=== PATIENT | male | born 1945 | race Caucasian/White ===

== ENCOUNTER 2016-05-26 10:35 | Outpatient (CLI) | payer MEDICARE | END 2016-05-26 10:36 | disposition home or self-care (01) | DX: E78.5 Hyperlipidemia, unspecified (principal); E29.1 Testicular hypofunction; R07.9 Chest pain, unspecified ==

== ENCOUNTER 2016-08-23 10:31 | Outpatient (CLI) | payer MEDICARE ==
[2016-08-23 13:41] LABS: CALCIUM 9.4 mg/dL (8.5-10.3); CREATININE 1.6 mg/dL (0.6-1.2); POTASSIUM 4.3 mmol/L (3.5-5.0)
== END 2016-08-23 10:32 | disposition home or self-care (01) ==
LOC: LAB.N 10:31
PROVIDERS: ATTEND Family Medicine
DX: N18.2 Chronic kidney disease, stage 2 (mild) (principal)
CPT/HCPCS: 36415; 80048

== ENCOUNTER 2016-11-28 07:31 | Outpatient (CLI) | payer MEDICARE ==
[2016-11-28 12:51] LABS: CALCIUM 9.1 mg/dL (8.5-10.3); CREATININE 1.5 mg/dL (0.6-1.2)
== END 2016-11-28 07:32 | disposition home or self-care (01) ==
LOC: LAB.WCP 07:31
PROVIDERS: ATTEND Family Medicine
DX: N18.2 Chronic kidney disease, stage 2 (mild) (principal); N40.1 Benign prostatic hyperplasia with lower urinary tract symptoms
CPT/HCPCS: 36415; 80048; 84153

== ENCOUNTER 2017-03-15 14:54 | Outpatient (CLI) | payer MEDICARE ==
[2017-03-15 13:38] LABS: BASOPHILS # (AUTO) 0.1 10^3/uL (0.0-0.1); BASOPHILS % (AUTO) 0.9 %; EOSINOPHILS # (AUTO) 0.3 10^3/uL (0.0-0.7); EOSINOPHILS % (AUTO) 4.3 %; HCT - HEMATOCRIT 45.4 % (42.0-52.0); HGB - HEMOGLOBIN 15.2 g/dL (14.0-18.0); LYMPHOCYTES # (AUTO) 1.5 10^3/uL (1.5-3.5); LYMPHOCYTES % (AUTO) 24.3 %; MEAN CORPUSCULAR HEMOGLOBIN 32.8 pg (27.0-31.0); MEAN CORPUSCULAR HGB CONC 33.6 g/dL (32.0-36.0); MEAN CORPUSCULAR VOLUME 97.8 fL (80.0-94.0); MEAN PLATELET VOLUME 9.4 fL (7.4-11.4); MONOCYTES # (AUTO) 0.6 10^3/uL (0.0-1.0); NEUTROPHILS # (AUTO) 3.7 10^3/uL (1.5-6.6); NEUTROPHILS % (AUTO) 61.5 %; NUCLEATED RED BLOOD CELLS AUTO 0.2 /100WBC; RED BLOOD COUNT 4.64 10^6/uL (4.70-6.10); RED CELL DISTRIBUTION WIDTH 12.9 % (12.0-15.0); UNCORRECTED WHITE BLOOD COUNT 6.1 x10^3/uL; WHITE BLOOD COUNT 6.1 x10^3/uL (4.8-10.8)
[2017-03-15 13:57] LABS: ALBUMIN/GLOBULIN RATIO 1.3 (1.0-2.2); BILIRUBIN,TOTAL 0.8 mg/dL (0.2-1.0); BUN - BLOOD UREA NITROGEN 20 mg/dL (6-20); CALCIUM 8.9 mg/dL (8.5-10.3); CARBON DIOXIDE - CO2 20 mmol/L (21-32); CHLORIDE 109 mmol/L (101-111); CHOL/HDL RATIO 6.1 (<5.0); CHOLESTEROL 212 mg/dL; CREATININE 1.4 mg/dL (0.6-1.2); GFR - MDRD 50 (>89); GLUCOSE 91 mg/dL (70-100); HDL CHOLESTEROL 35 mg/dL; LDL/HDL RATIO 4.6 (<3.6); SODIUM 137 mmol/L (135-145); TRIGLYCERIDES 87 mg/dL; VLDL CHOLESTEROL 17 mg/dL
== END 2017-03-15 14:55 | disposition home or self-care (01) ==
LOC: LAB.WCP 14:54
PROVIDERS: ATTEND Family Medicine
DX: N18.2 Chronic kidney disease, stage 2 (mild) (principal); E78.5 Hyperlipidemia, unspecified; E29.1 Testicular hypofunction
CPT/HCPCS: 36415; 80053; 80061; 84403; 85025

== ENCOUNTER 2017-07-03 08:00 | Outpatient (CLI) | payer MEDICARE ==
[2017-07-03 12:25] LABS: BASOPHILS # (AUTO) 0.1 10^3/uL (0.0-0.1); EOSINOPHILS # (AUTO) 0.2 10^3/uL (0.0-0.7); EOSINOPHILS % (AUTO) 3.8 %; LYMPHOCYTES # (AUTO) 1.5 10^3/uL (1.5-3.5); LYMPHOCYTES % (AUTO) 23.8 %; MEAN CORPUSCULAR HEMOGLOBIN 32.5 pg (27.0-31.0); MEAN CORPUSCULAR HGB CONC 33.4 g/dL (32.0-36.0); MEAN CORPUSCULAR VOLUME 97.4 fL (80.0-94.0); MONOCYTES # (AUTO) 0.6 10^3/uL (0.0-1.0); NEUTROPHILS # (AUTO) 3.8 10^3/uL (1.5-6.6); NEUTROPHILS % (AUTO) 61.4 %; PLT - PLATELET COUNT 297 10^3/uL (130-450); RED CELL DISTRIBUTION WIDTH 13.4 % (12.0-15.0); WHITE BLOOD COUNT 6.2 x10^3/uL (4.8-10.8)
[2017-07-03 12:26] LABS: ALBUMIN/GLOBULIN RATIO 1.4 (1.0-2.2); ALKALINE PHOSPHATASE 56 IU/L (42-121); ALT ALANINE AMINOTRANSFERASE 26 IU/L (10-60); AST ASPARTATE AMINOTRANSFERASE 19 IU/L (10-42); BILIRUBIN,TOTAL 0.7 mg/dL (0.2-1.0); BUN - BLOOD UREA NITROGEN 13 mg/dL (6-20); CALCIUM 8.8 mg/dL (8.5-10.3); CARBON DIOXIDE - CO2 23 mmol/L (21-32); CHLORIDE 107 mmol/L (101-111); CHOL/HDL RATIO 3.6 (<5.0); CHOLESTEROL 132 mg/dL; CREATININE 1.3 mg/dL (0.6-1.2); GFR - MDRD 55 (>89); GLUCOSE 92 mg/dL (70-100); HDL CHOLESTEROL 37 mg/dL; LDL CHOLESTEROL,CALCULATED 74 mg/dL; SODIUM 137 mmol/L (135-145); TOTAL PROTEIN 6.8 g/dL (6.7-8.2); VLDL CHOLESTEROL 21 mg/dL
[2017-07-03 12:31] LABS: PSA TOTAL 0.52 ng/mL (0.000-2.000)
[2017-07-03 13:37] LABS: RBC MORPHOLOGY (MULTIPLE) 2+ ANISOCYTOSIS (NORMAL)
== END 2017-07-03 08:01 | disposition home or self-care (01) ==
LOC: LAB.WCP 08:00
PROVIDERS: ATTEND Family Medicine
DX: N18.2 Chronic kidney disease, stage 2 (mild) (principal); E78.5 Hyperlipidemia, unspecified; E29.1 Testicular hypofunction
CPT/HCPCS: 36415; 80053; 80061; 83721; 84153; 84403; 85025

== ENCOUNTER 2018-01-29 07:07 | Outpatient (CLI) | payer MEDICARE ==
[2018-01-29 14:08] LABS: BASOPHILS # (AUTO) 0.1 10^3/uL (0.0-0.1); BASOPHILS % (AUTO) 0.8 %; EOSINOPHILS # (AUTO) 0.5 10^3/uL (0.0-0.7); EOSINOPHILS % (AUTO) 5.6 %; HGB - HEMOGLOBIN 15.3 g/dL (14.0-18.0); LYMPHOCYTES # (AUTO) 1.9 10^3/uL (1.5-3.5); LYMPHOCYTES % (AUTO) 22.3 %; MEAN CORPUSCULAR HEMOGLOBIN 33.2 pg (27.0-31.0); MEAN CORPUSCULAR HGB CONC 33.6 g/dL (32.0-36.0); MEAN CORPUSCULAR VOLUME 98.9 fL (80.0-94.0); MEAN PLATELET VOLUME 8.4 fL (7.4-11.4); MONOCYTES % (AUTO) 11.5 %; NEUTROPHILS % (AUTO) 59.8 %; PLT - PLATELET COUNT 305 10^3/uL (130-450); RED BLOOD COUNT 4.59 10^6/uL (4.70-6.10); RED CELL DISTRIBUTION WIDTH 13.8 % (12.0-15.0); WHITE BLOOD COUNT 8.3 x10^3/uL (4.8-10.8)
[2018-01-29 14:29] LABS: ALBUMIN 3.8 g/dL (3.2-5.5); ALBUMIN/GLOBULIN RATIO 1.3 (1.0-2.2); BILIRUBIN,TOTAL 0.8 mg/dL (0.2-1.0); CALCIUM 8.9 mg/dL (8.5-10.3); CREATININE 1.2 mg/dL (0.6-1.2); TOTAL PROTEIN 6.8 g/dL (6.7-8.2)
== END 2018-01-29 07:08 | disposition home or self-care (01) ==
LOC: LAB.WCP 07:07
PROVIDERS: ATTEND Family Medicine
DX: N28.9 Disorder of kidney and ureter, unspecified (principal); E29.1 Testicular hypofunction
CPT/HCPCS: 36415; 80053; 84403; 85025

== ENCOUNTER 2018-06-27 08:00 | Outpatient (CLI) | payer MEDICARE ==
[2018-06-27 19:15] LABS: BASOPHILS % (AUTO) 0.7 %; EOSINOPHILS # (AUTO) 0.2 10^3/uL (0.0-0.7); EOSINOPHILS % (AUTO) 3.7 %; LYMPHOCYTES # (AUTO) 1.6 10^3/uL (1.5-3.5); LYMPHOCYTES % (AUTO) 24.8 %; MEAN CORPUSCULAR HEMOGLOBIN 32.4 pg (27.0-31.0); MEAN CORPUSCULAR HGB CONC 33.1 g/dL (32.0-36.0); MEAN CORPUSCULAR VOLUME 97.8 fL (80.0-94.0); MEAN PLATELET VOLUME 8.3 fL (7.4-11.4); MONOCYTES # (AUTO) 0.7 10^3/uL (0.0-1.0); MONOCYTES % (AUTO) 11.1 %; NEUTROPHILS # (AUTO) 3.8 10^3/uL (1.5-6.6); NEUTROPHILS % (AUTO) 59.7 %; PLT - PLATELET COUNT 342 10^3/uL (130-450); RED BLOOD COUNT 4.32 10^6/uL (4.70-6.10); WHITE BLOOD COUNT 6.4 x10^3/uL (4.8-10.8)
[2018-06-27 19:19] LABS: PT - PROTHROMBIN TIME 11.7 secs (9.9-12.6)
[2018-06-27 19:32] LABS: PARTIAL THROMBOPLASTIN TIME 30.1 secs (24.9-33.3)
[2018-06-27 19:37] LABS: PSA TOTAL 0.23 ng/mL (0.000-2.000)
[2018-06-27 19:41] LABS: ALBUMIN 4.1 g/dL (3.2-5.5); ALBUMIN/GLOBULIN RATIO 1.3 (1.0-2.2); ALKALINE PHOSPHATASE 64 IU/L (42-121); ALT ALANINE AMINOTRANSFERASE 23 IU/L (10-60); AST ASPARTATE AMINOTRANSFERASE 26 IU/L (10-42); BILIRUBIN,TOTAL 0.7 mg/dL (0.2-1.0); BUN - BLOOD UREA NITROGEN 20 mg/dL (6-20); CALCIUM 9.3 mg/dL (8.5-10.3); CARBON DIOXIDE - CO2 26 mmol/L (21-32); CHLORIDE 102 mmol/L (101-111); CHOL/HDL RATIO 3.3 (<5.0); CHOLESTEROL 168 mg/dL; CREATININE 1.3 mg/dL (0.6-1.2); GFR - MDRD 55 (>89); GLUCOSE 85 mg/dL (70-100); HDL CHOLESTEROL 51 mg/dL; LDL CHOLESTEROL,CALCULATED 94 mg/dL; LDL/HDL RATIO 1.8 (<3.6); SODIUM 138 mmol/L (135-145); TOTAL PROTEIN 7.2 g/dL (6.7-8.2); VLDL CHOLESTEROL 23 mg/dL
[2018-06-28 12:41] LABS: HEPATITIS C ANTIBODY NON-REACTIVE (NON-REACTIVE)
== END 2018-06-27 08:01 | disposition home or self-care (01) ==
LOC: LAB.WCP 08:00
PROVIDERS: ATTEND Family Medicine
DX: N18.2 Chronic kidney disease, stage 2 (mild) (principal); E29.1 Testicular hypofunction; Z79.899 Other long term (current) drug therapy; Z11.59 Encounter for screening for other viral diseases; M54.5 Low back pain; G89.29 Other chronic pain
CPT/HCPCS: 36415; 80053; 80061; 83721; 84153; 84403; 85025; 85610; 85730; 86803

== ENCOUNTER 2018-08-22 08:09 | Outpatient (CLI) | payer MEDICARE ==
--- NOTE | 2018-08-22 08:57 | XRAY Report ---
Reason: PAIN IN LEFT WRIST Procedure Date: 08/22/2018 Accession Number: [id number] / [id number] Procedure: WCP - Wrist 3 View LT CPT Code: FULL RESULT: EXAM: LEFT WRIST RADIOGRAPHY EXAM DATE: 08/22/2018 08:22 AM. CLINICAL HISTORY: Pain in left wrist, ulnar side. COMPARISON: None. TECHNIQUE: 3 views. 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 Changes of prior healed fracture of the third metacarpal. Prior arthrodesis of the fourth IP joint. No acute fracture appreciated. Joints: Minor degenerative osteophyte noted of the proximal pole of the lunate. Soft Tissues: Normal. No soft tissue swelling. IMPRESSION: 1. Operative changes. 2. No acute fracture. RADIA
== END 2018-08-22 08:10 | disposition home or self-care (01) ==
LOC: DI.WCP 08:09
PROVIDERS: ATTEND Family Medicine
DX: M25.532 Pain in left wrist (principal)

== ENCOUNTER 2019-02-04 10:14 | Outpatient (CLI) | payer MEDICARE ==
[2019-02-04 10:42] LABS: BASOPHILS % (AUTO) 0.6 %; EOSINOPHILS # (AUTO) 0.3 10^3/uL (0.0-0.7); EOSINOPHILS % (AUTO) 4.3 %; HGB - HEMOGLOBIN 14.4 g/dL (14.0-18.0); LYMPHOCYTES # (AUTO) 1.6 10^3/uL (1.5-3.5); LYMPHOCYTES % (AUTO) 21.7 %; MEAN CORPUSCULAR HEMOGLOBIN 30.6 pg (27.0-31.0); MEAN CORPUSCULAR VOLUME 95.7 fL (80.0-94.0); MEAN PLATELET VOLUME 9.5 fL (7.4-11.4); MONOCYTES # (AUTO) 0.6 10^3/uL (0.0-1.0); MONOCYTES % (AUTO) 8.7 %; NEUTROPHILS # (AUTO) 4.6 10^3/uL (1.5-6.6); NEUTROPHILS % (AUTO) 64.4 %; PLT - PLATELET COUNT 341 10^3/uL (130-450); RED CELL DISTRIBUTION WIDTH 13.8 % (12.0-15.0); WHITE BLOOD COUNT 7.1 x10^3/uL (4.8-10.8)
[2019-02-04 10:56] LABS: CALCIUM 9.1 mg/dL (8.5-10.3); CREATININE 1.3 mg/dL (0.6-1.2)
--- NOTE | 2019-02-04 16:10 | XRAY Report ---
Reason: OTHER DISORDERS OF PREPUCE Procedure Date: 02/04/2019 Accession Number: [id number] / [id number] Procedure: XR - Chest 2 View X-Ray CPT Code: 77737 FULL RESULT: EXAM: CHEST RADIOGRAPHY EXAM DATE: 02/04/2019 10:56 AM. CLINICAL HISTORY: OTHER DISORDERS OF PREPUCE. Preoperative evaluation COMPARISON: CHEST 2 VIEW PA/LAT 01/18/2018 11:11 AM. TECHNIQUE: 2 views. FINDINGS: Lungs/Pleura: No focal opacities evident. No pleural effusion. No pneumothorax. Normal volumes. Mediastinum: Heart and mediastinal contours are unremarkable. Other: Healed right midshaft clavicle fracture. Spinal neural stimulator in place. Postsurgical change lumbar spine IMPRESSION: Clear lungs. No acute findings. RADIA
== END 2019-02-04 10:15 | disposition home or self-care (01) ==
LOC: LAB 10:14 → DI 10:15
PROVIDERS: ATTEND Urology
DX: Z01.818 Encounter for other preprocedural examination (principal); N47.8 Other disorders of prepuce
CPT/HCPCS: 36415; 71046; 80048; 85025; 93005

== ENCOUNTER 2019-02-11 06:01 | Day surgery (SDC) | payer MEDICARE ==
[2019-02-11] MEDS ORDERED: LACTATED RINGERS 1,000 ML IV ONE (06:20)
[2019-02-11] MEDS ORDERED: CEFAZOLIN SODIUM IN 0.9 % NACL 2 GM/100 ML BAG IV ONE (06:38)
[2019-02-11] MEDS ORDERED: BUPIVACAINE 0.5% PF 30 ML VIAL ONE (07:04)
[2019-02-11] MEDS ORDERED: BACITRACIN ZINC OINT 14 GM TOP ONE (07:05)
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
--- NOTE | 2019-02-11 07:24 | ANESTHESIA ---
Pre-Anesthesia VS, & Labs - Diagnosis redundant foreskin - Procedure circumcision Vital Signs: Temp Pulse Resp BP Pulse Ox 37 C 107 H 18 140/92 H 94 02/11/19 06:40 02/11/19 06:40 02/11/19 06:40 02/11/19 06:40 02/11/19 06:40 Height 5 ft 11 in Weight (kg) 98 kg Body Mass Index 28.7 - Lab Results Current Lab Results: Laboratory Tests 02/11/19 07:03: POC Whole Bld Glucose 92 Home Medications and Allergies Home Medications: Ambulatory Orders Aspirin/Acetaminophen/Caffeine [Excedrin Migraine Caplet] 1 each PO ONCE PRN 02/04/19 Cyanocobalamin (Vitamin B-12) [Vitamin B-12 (100mcg tab)] 100 mcg PO QPM 02/04/19 DULoxetine [Cymbalta] 30 mg PO DAILY 02/04/19 Testosterone [Androgel] 5 gm TD DAILY 02/04/19 Tolterodine [Detrol LA] 4 mg PO DAILY 02/04/19 Trospium Chloride [Trospium Chloride ER] 60 mg PO DAILY 02/04/19 Cholecalciferol (Vitamin D3) [Vitamin D3] 2,000 unit PO BID 08/23/12 Verapamil [Calan] 80 mg PO BID 08/23/12 clonazePAM [Clonazepam] 0.5 mg PO QPM PRN 08/23/12 Atorvastatin Calcium [Lipitor] 20 mg PO DAILY 10/02/12 Magnesium Oxide [Mag-Oxide] 800 mg PO QPM 11/12/12 Tamsulosin [Flomax] 0.4 mg PO DAILY 12/17/12 Sumatriptan Succinate [Imitrex] 100 mg PO ONCE PRN 08/18/14 Aspirin/Acetaminophen/Caffeine [Excedrin Migraine Caplet] 1 each PO ONCE PRN 02/04/19 Cyanocobalamin (Vitamin B-12) [Vitamin B-12 (100mcg tab)] 100 mcg PO QPM 02/04/19 DULoxetine [Cymbalta] 30 mg PO DAILY 02/04/19 Testosterone [Androgel] 5 gm TD DAILY 02/04/19 Tolterodine [Detrol LA] 4 mg PO DAILY 02/04/19 Trospium Chloride [Trospium Chloride ER] 60 mg PO DAILY 02/04/19 Allergies/Adverse Reactions: Allergies Allergy/AdvReac Type Severity Reaction Status Date / Time ampicillin [Ampicillin] Allergy Intermediate Cramps Verified 09/26/14 15:08 adhesive Allergy Mild Rash Verified 09/22/14 10:22 Anes History & Medical History - Anesthetic History Family history of Anesthesia Complications: Denies Family history of Malignant Hyperthermia: Denies - Medical History Cardiovascular: reports: High cholesterol, Deep vein thrombosis Pulmonary: reports: Sleep apnea Gastrointestinal: reports: Colon polyps Urinary: reports: Frequency, Kidney stones Musculoskeletal: reports: Osteoarthritis, Osteoporosis, Chronic back pain, Other Endocrine/Autoimmune: reports: None Skin: reports: Eczema Smoking Status: Never smoker - Surgical History General: Splenectomy, Colonoscopy Eyes Ears Nose Throat (EENT): Tonsil/Adenoidectomy, Other Urologic: Ureterolithotomy (stones), Prostatic surgery Orthopedic: Shoulder arthroplasty, Spine surgery, Other Exam Dental: WNL Mouth Openin Fingerbreadth Neck Mobility: Normal Mallampati classification: II Thyromental Distance: 4-6 cm Respiratory: Lungs clear, Normal breath sounds, No respiratory distress, No accessory muscle use Cardiovascular: Regular rate, Normal S1, Normal S2, No murmurs Abdomen: Normal bowel sounds, Soft, No tenderness, No hepatospenomegaly, No masses Extremities: No clubbing, No cyanosis, No edema, Normal pulses, No tenderness/swelling Neurological: Normal gait, Normal speech, Strength at 5/5 X4 ext, Normal tone, Sensation intact, Cranial nerves 3-12 NL, Reflexes 2+ Mental/Cognitive Status: Alert/Oriented X3, Normal for patient Cognitive Status: Within normal limits Plan Anesthesia Type: General Consent for Procedure(s) Verified and Reviewed: Yes Code Status: Attempt Resuscitation ASA classification: 2-Mild systemic disease Is this case an emergency?: No
[2019-02-11] MEDS ORDERED: NEOSTIGMINE 1 MG/1 ML 10 ML MDV IVP ONE (08:00)
[2019-02-11] MEDS ORDERED: raNITIdine INJ 25 MG/ML VIAL IV ONE (08:00)
[2019-02-11] MEDS ORDERED: DEXAMETHASONE 4 MG/ML VIAL IVP ONE (08:00)
[2019-02-11] MEDS ORDERED: ONDANSETRON 4 MG/2 ML VIAL IVP ONE (08:00)
[2019-02-11] MEDS ORDERED: LIDOCAINE-MPF 2% 5 ML VIAL IM ONE (08:00)
[2019-02-11] MEDS ORDERED: ACETAMINOPHEN 1,000 MG/100 ML 100 ML IV ONE (08:00)
[2019-02-11] MEDS ORDERED: ePHEDrine 50 MG/ML VIAL IVP ONE (08:00)
[2019-02-11] MEDS ORDERED: fentaNYL 100 MCG/2 ML VIAL IVP ONE (08:00)
[2019-02-11] MEDS ORDERED: GLYCOPYRROLATE 1 MG/5 ML VIAL IVP ONE (08:00)
[2019-02-11] MEDS ORDERED: PROPOFOL 200 MG/20 ML VIAL IVP ONE (08:00)
[2019-02-11] MEDS ORDERED: BUPIVACAINE 0.5% PF 30 ML VIAL INFIL ONE ×2 (08:46)
[2019-02-11] MEDS ORDERED: HYDROcod/ACETAM 10 MG/325 MG TABLET PO PRN (09:57)
[2019-02-11] MEDS ORDERED: ONDANSETRON 4 MG/2 ML VIAL IVP PRN (09:57)
--- NOTE | 2019-02-11 10:02 | IMMEDIATE POSTOPERATIVE NOTE ---
Immediate Postoperative Note - Procedure Note Procedure Date: 02/11/19 Pre-Op Diagnosis: Redundant foreskin Procedure: Circumcision Post-Op Diagnosis: Redundant foreskin Primary Surgeon: Homero Foy MD Level Designer: None Anesthesia Type: Other (General) Findings: Redundant foreskin seen. Circumcision performed. Complications: No complications Estimated Blood Loss (in cc): 5 Specimens and Cultures: Foreskin Plan of Care: Plan is for patient to be discharged home when stable and to RTC with me for post-op visit in 2-3 weeks.
[2019-02-11 11:02] VITALS: BP 140/79
--- NOTE | 2019-02-11 18:52 | OPERATIVE REPORT ---
DATE OF SERVICE: 02/11/2019 Physician: Homero Foy MD PREOPERATIVE DIAGNOSIS: Redundant foreskin. POSTOPERATIVE DIAGNOSIS: Redundant foreskin. PROCEDURE PERFORMED: Circumcision. SURGEON: Homero Foy MD ASSISTANTS: None. ANESTHESIA: General. ESTIMATED BLOOD LOSS: 5 mL SPECIMENS: Foreskin. DRAINS: None. COMPLICATIONS: None. DISPOSITION: Stable. FINDINGS: Redundant foreskin was seen. Circumcision was performed. INDICATIONS: The patient is a 73-year-old male with redundant foreskin. The patient now presents fo r circumcision. DESCRIPTION OF PROCEDURE: The patient was brought to the operating room and was placed supine on the operating room table. The patient was given IV antibiotics. Sequential compression device boots we re placed. General anesthesia was administered. The patient was left in supine position. The patie nt was prepped and draped in standard sterile fashion. Redundant foreskin was seen. Circumcision w as performed, specifically the foreskin was retracted and a line was marked approximately 1 cm proxim al to the matamoros. Incision was made at the level of this line through the skin, subcutaneous tissue and dartos fascia down to Cardona's fascia sharply using a #15 blade. Then, the foreskin was reduced. A line was marked at the outline of the matamoros. Incision was made at the level of this line through the skin, subcutaneous tissue and dartos fascia down to Cardona's fascia sharply using a #15 blade. The n, the foreskin was incised on the dorsal aspect of the penis sharply using Metzenbaum scissors. The foreskin was excised using Bovie electrocautery and was sent to pathology for permanent specimen. E xcellent hemostasis was achieved using Bovie electrocautery. The wound was thoroughly irrigated usin g sterile solution. Then, skin edges were reapproximated on the dorsal aspect of the penis using a 3 -0 chromic suture. The skin edges were reapproximated on the ventral aspect of the penis using a U s uture of 3-0 chromic. The skin edges were reapproximated on the right side using a running 3-0 chrom ic suture. Skin edges were then reapproximated on the left side using a running 3-0 chromic suture. Then, anesthesia in the form of penile ring block was administered using 0.5% plain Marcaine to aid in postoperative pain control. Skin was cleaned and dried. Antibiotic ointment and sterile dressing s were applied. The patient was awakened from general anesthesia and was transferred to the recovery room in stable condition. The patient tolerated the procedure well. Postoperative plan is for the patient to be discharged home when stable and return to see me in the [facility] for a postoperative visit in 2-3 weeks. TD: 02/11/2019 16:23
== END 2019-02-11 06:02 | disposition home or self-care (01) ==
LOC: SDS 06:01
PROVIDERS: ATTEND Urology
PROC: 0VTTXZZ Resection of Prepuce, External Approach (ICD-10-PCS; principal; 2019-02-11 07:30)
DX: N47.8 Other disorders of prepuce (principal); N48.1 Balanitis; N40.1 Benign prostatic hyperplasia with lower urinary tract symptoms; R35.0 Frequency of micturition; R35.1 Nocturia; N20.0 Calculus of kidney; G47.30 Sleep apnea, unspecified; Z79.899 Other long term (current) drug therapy; Z86.718 Personal history of other venous thrombosis and embolism
CPT/HCPCS: 54161; A9270; J0131; J0690; J7120

== ENCOUNTER 2019-03-12 14:25 | Outpatient (CLI) | payer MEDICARE ==
--- NOTE | 2019-03-13 11:36 | DEXA Report ---
Reason: BONE DISORDERS Procedure Date: 03/12/2019 Accession Number: [id number] / [id number] Procedure: DEX - Dexa Spine and/or Hip CPT Code: Final Report FULL RESULT: EXAM: Dexa Spine and/or Hip, Dexa Forearm DATE: 03/12/2019 3:28 PM CLINICAL HISTORY: The patient is a 73-year-old male. Hypogonadism. On hormonal placement therapy. TECHNIQUE: Dual energy x-ray absorptiometry (DXA) was performed on a [employer] System. Regions measured are the AP Spine, femoral neck, and if needed forearm. COMPARISON: None. In accordance with the International Society for Clinical Densitometry (ISCD) guidelines, data from previous exams may be reanalyzed using current recommendations and techniques. This is done to allow a more accurate basis for comparison with the current study. FINDINGS: The data for the hip is as follows: BMD (g/cm/cm) T-SCORE Z-SCORE REGION Neck 0.873 -1.5 -0.7 TOTAL 0.887 -1.5 -1.2 NOTE: The femoral neck or total proximal femur, whichever is lowest, is used for classification. The data for the left forearm is as follows: BMD (g/cm/cm) T-SCORE Z-SCORE REGION 1/3 1.028 0.4 1.2 NOTE: The 33% radius of the nondominant forearm is used for classification. IMPRESSION: THE WHO CLASSIFICATION BASED ON THE INTERNATIONAL REFERENCE STANDARD IS OSTEOPENIA. THE FRACTURE RISK IS INCREASED. RECOMMENDATION: Patients with diagnosis of osteoporosis or osteopenia should have regular bone mineral density assessment. For those eligible for Medicare, routine testing is allowed once every 2 years. Testing frequency can be increased for patients who have rapidly progressing disease or for those who are receiving medical therapy to restore bone mass. COMMENT: World Health Organization (WHO) definitions for osteoporosis and osteopenia: NORMAL BMD: T-score at -1.0 or higher, fracture risk is low OSTEOPENIA BMD: T-score between -1.0 and -2.5, fracture risk is increased. OSTEOPOROSIS BMD: T-score at -2.5 or lower, fracture risk is high. National Osteoporosis Foundation recommends: 1. Obtain adequate dietary calcium (at least 1200 mg per day) and vitamin D (400-800 international units per day). 2. Participate, as appropriate, in regular weightbearing and muscle-strengthening exercise. 3. Avoid tobacco use and reduce alcohol and caffeine intake. 4. For more detailed information see the website at www.NOF.org.
--- NOTE | 2019-03-13 11:36 | DEXA Report ---
Reason: Bone Disorder Procedure Date: 03/12/2019 Accession Number: [id number] / [id number] Procedure: DEX - Dexa Forearm CPT Code: Final Report FULL RESULT: EXAM: Dexa Spine and/or Hip, Dexa Forearm DATE: 03/12/2019 3:28 PM CLINICAL HISTORY: The patient is a 73-year-old male. Hypogonadism. On hormonal placement therapy. TECHNIQUE: Dual energy x-ray absorptiometry (DXA) was performed on a [employer] System. Regions measured are the AP Spine, femoral neck, and if needed forearm. COMPARISON: None. In accordance with the International Society for Clinical Densitometry (ISCD) guidelines, data from previous exams may be reanalyzed using current recommendations and techniques. This is done to allow a more accurate basis for comparison with the current study. FINDINGS: The data for the hip is as follows: BMD (g/cm/cm) T-SCORE Z-SCORE REGION Neck 0.873 -1.5 -0.7 TOTAL 0.887 -1.5 -1.2 NOTE: The femoral neck or total proximal femur, whichever is lowest, is used for classification. The data for the left forearm is as follows: BMD (g/cm/cm) T-SCORE Z-SCORE REGION 1/3 1.028 0.4 1.2 NOTE: The 33% radius of the nondominant forearm is used for classification. IMPRESSION: THE WHO CLASSIFICATION BASED ON THE INTERNATIONAL REFERENCE STANDARD IS OSTEOPENIA. THE FRACTURE RISK IS INCREASED. RECOMMENDATION: Patients with diagnosis of osteoporosis or osteopenia should have regular bone mineral density assessment. For those eligible for Medicare, routine testing is allowed once every 2 years. Testing frequency can be increased for patients who have rapidly progressing disease or for those who are receiving medical therapy to restore bone mass. COMMENT: World Health Organization (WHO) definitions for osteoporosis and osteopenia: NORMAL BMD: T-score at -1.0 or higher, fracture risk is low OSTEOPENIA BMD: T-score between -1.0 and -2.5, fracture risk is increased. OSTEOPOROSIS BMD: T-score at -2.5 or lower, fracture risk is high. National Osteoporosis Foundation recommends: 1. Obtain adequate dietary calcium (at least 1200 mg per day) and vitamin D (400-800 international units per day). 2. Participate, as appropriate, in regular weightbearing and muscle-strengthening exercise. 3. Avoid tobacco use and reduce alcohol and caffeine intake. 4. For more detailed information see the website at www.NOF.org.
== END 2019-03-12 14:26 | disposition home or self-care (01) ==
LOC: DI 14:25
PROVIDERS: ATTEND Family Medicine
DX: M85.88 Other specified disorders of bone density and structure, other site (principal)
CPT/HCPCS: 77080; 77081

== ENCOUNTER 2019-11-29 20:25 | Outpatient (CLI) | payer MEDICARE | END 2019-11-29 20:26 | disposition critical access hospital (66) | LOC: EMS 20:25 | PROVIDERS: ATTEND Surgery | DX: R53.1 Weakness (principal) | CPT/HCPCS: A0425; A0427 ==

== ENCOUNTER 2019-11-29 20:40 | Inpatient (IN) | payer MEDICARE ==
[2019-11-29] MEDS ORDERED: SODIUM CHLORIDE 0.9% 1,000 ML IV STA ×2 (20:57→20:58)
[2019-11-29 21:18] LABS: BASOPHILS # (AUTO) 0.1 10^3/uL (0.0-0.1); BASOPHILS % (AUTO) 0.5 %; LYMPHOCYTES # (AUTO) 0.5 10^3/uL (1.5-3.5); LYMPHOCYTES % (AUTO) 2.2 %; MEAN CORPUSCULAR HGB CONC 33.2 g/dL (32.0-36.0); MEAN CORPUSCULAR VOLUME 96.3 fL (80.0-94.0); MEAN PLATELET VOLUME 9.6 fL (7.4-11.4); MONOCYTES # (AUTO) 1.5 10^3/uL (0.0-1.0); MONOCYTES % (AUTO) 6.4 %; NEUTROPHILS # (AUTO) 21.4 10^3/uL (1.5-6.6); NEUTROPHILS % (AUTO) 90.3 %; PLT - PLATELET COUNT 507 10^3/uL (130-450); RED BLOOD COUNT 4.06 10^6/uL (4.70-6.10); RED CELL DISTRIBUTION WIDTH 13.2 % (12.0-15.0); WHITE BLOOD COUNT 23.7 x10^3/uL (4.8-10.8)
[2019-11-29 21:23] LABS: INR 1.2 (0.8-1.2); PT - PROTHROMBIN TIME 13.8 secs (9.9-12.6)
[2019-11-29 21:31] LABS: PARTIAL THROMBOPLASTIN TIME 27.1 secs (24.9-33.3)
[2019-11-29 21:32] LABS: ALBUMIN 3.7 g/dL (3.2-5.5); ALBUMIN/GLOBULIN RATIO 1.1 (1.0-2.2); BILIRUBIN,TOTAL 0.5 mg/dL (0.2-1.0); CREATININE 1.5 mg/dL (0.6-1.2); TOTAL PROTEIN 7.1 g/dL (6.7-8.2)
--- NOTE | 2019-11-29 21:34 | XRAY Report ---
PROCEDURE: Chest 1 View X-Ray INDICATIONS: fever, post op back surgery TECHNIQUE: One view of the chest was acquired. COMPARISON: Chest CT dated 02.04.19. FINDINGS: Surgical changes and devices: None. Lungs and pleura: No pleural effusions or pneumothorax. Lungs are clear. Mediastinum: Mediastinal contours appear normal. Heart size is normal. Bones and chest wall: No suspicious bony lesions. Overlying soft tissues appear unremarkable. IMPRESSION: No acute process. Reviewed by: Demetris Galloway MD on 11/29/2019 9:32 PM PDT Approved by: Demetris Galloway MD on 11/29/2019 9:32 PM PDT Station ID: [id number]
[2019-11-29 21:47] LABS: RBC MORPHOLOGY (MULTIPLE) 1+ ACANTHOCYTES (NORMAL)
[2019-11-29 21:48] LABS: DIFFERENTIAL COMMENT MANUAL=AUTO DIFF; PLATELET ESTIMATE, MANUAL INCREASED (>450,000) (NORMAL); PLATELET MORPHOLOGY NORMAL APPEARANCE (NORMAL)
[2019-11-29 21:53] LABS: BILIRUBIN,URINE NEGATIVE (NEGATIVE); GLUCOSE, URINE (UA) NEGATIVE (NEGATIVE); KETONES,URINE (UA) NEGATIVE (NEGATIVE); LEUKOCYTE ESTERASE, URINE TRACE (NEGATIVE); NITRITE,URINE POSITIVE (NEGATIVE); OCCULT BLOOD,URINE SMALL (NEGATIVE); PROTEIN,URINE NEGATIVE (NEGATIVE); UROBILINOGEN,URINE 0.2 (NORMAL) E.U./dL (NORMAL)
[2019-11-29 21:55] LABS: CLARITY,URINE HAZY (CLEAR)
[2019-11-29 22:04] LABS: AMORPHOUS SEDIMENT,UR Few /LPF; BACTERIA,URINE Many /HPF (None Seen); SQUAMOUS EPITHELIAL CELL,UR RARE Squamous (<= Few)
[2019-11-29] MEDS ORDERED: VANCOMYCIN INJ 1 GM in SODIUM CHLORIDE 0.9% 500 ML IV STA (22:36)
[2019-11-29] MEDS ORDERED: MEROPENEM 1 GM in SODIUM CHLORIDE 0.9% MINIBAG 100 ML IV STA (22:36)
[2019-11-29] MEDS ORDERED: VANCOMYCIN 1 GM VIAL ONE (22:50)
--- NOTE | 2019-11-29 23:08 | ED Physician Documentation ---
PD HPI ALTERED MENTAL STATUS - Stated complaint Stated Complaint: FEVER - Chief complaint Chief Complaint: Fever - History obtained from History obtained from: Patient, EMS, Other (Patient with generalized weakness and little bit of somnolence or mild confusion for the last couple of days. He had difficulty getting up today. No focal weakness.) - History of Present Illness Timing - onset: Yesterday Timing - duration: Days (2) Timing - details: Gradual onset, Still present Quality / character: Confused, Other (general weakness) Associated symptoms: Fever (since yesterday), Urinary sx. No: Headache, Dyspnea, Cough, NVD Contributing factors: No: Anticoagulated, Diabetic, Recent injury Basline status: Alert and oriented X 3, Walker Similar symptoms before: Has not had sx before Recently seen: Clinic (Seen a few days ago for catheter removal and was placed on antibiotics by his urologist Sarika Chavez for concern of infection. He has been on it for 2 days but now is having some discomfort urinating, fever, general weakness.), Surgery (Lumbar laminectomy at [facility] on November 13 with surgery at the L1-L2 level. He states the wound is healing well without any signs of infection.) Review of Systems Constitutional: reports: Fever (at home) Nose: denies: Rhinorrhea / runny nose, Congestion Throat: denies: Sore throat Respiratory: denies: Cough GI: denies: Abdominal Pain, Nausea, Vomiting, Diarrhea : reports: Dysuria, Frequency Skin: denies: Rash, Lesions Musculoskeletal: reports: Back pain (just mild post op, improving well since surgery.) Neurologic: reports: Generalized weakness, Confused (feeling slightly sluggish). denies: Focal weakness, Numbness, Near syncope, Unresponsive, Headache PD PAST MEDICAL HISTORY - Past Medical History Cardiovascular: High cholesterol, Deep vein thrombosis Respiratory: Sleep apnea Neuro: None Endocrine/Autoimmune: None GI: Colon polyps : Frequency, Kidney stones HEENT: None Psych: Depression, Anxiety Musculoskeletal: Osteoarthritis, Osteoporosis, Chronic back pain, Other Derm: Eczema - Past Surgical History Past Surgical History: Yes General: Splenectomy, Colonoscopy Ortho: Shoulder arthroplasty, Spine surgery, Other HEENT: Tonsil/Adenoidectomy, Other - Present Medications Home Medications: Ambulatory Orders Medication Instructions Recorded Confirmed Cholecalciferol (Vitamin D3) 2,000 unit PO BID 08/23/12 02/04/19 [Vitamin D3] Verapamil [Calan] 80 mg PO BID 08/23/12 02/11/19 clonazePAM [Clonazepam] 0.5 mg PO QPM PRN 08/23/12 02/04/19 Atorvastatin Calcium [Lipitor] 20 mg PO DAILY 10/02/12 02/04/19 Magnesium Oxide [Mag-Oxide] 800 mg PO QPM 11/12/12 02/11/19 Tamsulosin [Flomax] 0.4 mg PO DAILY 12/17/12 02/11/19 Sumatriptan Succinate [Imitrex] 100 mg PO ONCE PRN 08/18/14 02/11/19 Aspirin/Acetaminophen/Caffeine 1 each PO ONCE PRN 02/04/19 02/04/19 [Excedrin Migraine Caplet] Cyanocobalamin (Vitamin B-12) 100 mcg PO QPM 02/04/19 02/11/19 [Vitamin B-12 (100mcg tab)] DULoxetine [Cymbalta] 30 mg PO DAILY 02/04/19 02/04/19 Testosterone [Androgel] 5 gm TD DAILY 02/04/19 02/11/19 Tolterodine [Detrol LA] 4 mg PO DAILY 02/04/19 02/11/19 Trospium Chloride [Trospium 60 mg PO DAILY 02/04/19 02/11/19 Chloride ER] - Allergies Allergies/Adverse Reactions: Allergies Allergy/AdvReac Type Severity Reaction Status Date / Time ampicillin [Ampicillin] Allergy Intermediate Cramps Verified 11/29/19 20:49 adhesive Allergy Mild Rash Verified 11/29/19 20:49 - Social History Does the pt smoke?: No Smoking Status: Never smoker Does the pt drink ETOH?: No Does the pt have substance abuse?: No - Immunizations Immunizations are current?: Yes - POLST Patient has POLST: No PD ED PE NORMAL - Vitals Vital signs reviewed: Yes - General General: Alert and oriented X 3, No acute distress, Well developed/nourished - HEENT HEENT: Ears normal, Moist mucous membranes, Pharynx benign - Neck Neck: Supple, no meningeal sign, No adenopathy - Cardiac Cardiac: No murmur. No: RRR (regular but tachycardic) - Respiratory Respiratory: Clear bilaterally - Abdomen Abdomen: Normal bowel sounds, Soft, Non distended, No organomegaly, Other (mild tender suprapubic area) - Male Male : Other (normal external genitalia) - Back Back: No CVA TTP, Other (limited rolling of patient, but no noted redness of the surgical wound low back. ) - Derm Derm: Normal color, Warm and dry - Extremities Extremities: Normal ROM s pain, No edema, No calf tenderness / cord - Neuro Neuro: Alert and oriented X 3, No sensory deficit, Normal speech, Other (Moderate generalized weakness with difficulty raising arms and legs up off the bed. It does appear generally symmetric without localizing to the lower legs nor unilateral.) Eye Opening: Spontaneous Motor: Obeys Commands Verbal: Oriented GCS Score: 15 Results - Vitals Vitals: Vital Signs - 24 hr 11/29/19 11/29/19 11/29/19 20:49 22:09 22:30 Temperature 38.0 C H 36.6 C Heart Rate 135 H 106 H 110 H Respiratory 18 24 16 Rate Blood Pressure 113/67 109/51 L 120/80 O2 Saturation 92 97 98 11/29/19 23:00 Temperature 36.6 C Heart Rate 108 H Respiratory 16 Rate Blood Pressure 118/62 O2 Saturation 97 Oxygen O2 Source Nasal cannula Oxygen Flow Rate 2 - Labs Labs: Laboratory Tests 11/29/19 11/29/19 11/29/19 21:10 21:11 21:11 WBC 23.7 H RBC 4.06 L Hgb 13.0 L Hct 39.1 L MCV 96.3 H MCH 32.0 H MCHC 33.2 RDW 13.2 Plt Count 507 H MPV 9.6 Neut # (Auto) 21.4 H Lymph # (Auto) 0.5 L [place] # (Auto) 1.5 H Eos # (Auto) 0.0 Baso # (Auto) 0.1 Absolute Nucleated RBC 0.00 Band Neuts % (Manual) Not Reportable Abnorm Lymph % (Manual) Not Reportable Nucleated RBC % 0.0 Neutrophils # (Manual) Not Reportable Lymphocytes # (Manual) Not Reportable Monocytes # (Manual) Not Reportable Eosinophils # (Manual) Not Reportable Basophils # (Manual) Not Reportable Differential Comment MANUAL=AUTO DIFF Manual Slide Review Indicated Platelet Estimate INCREASED (>450,000) Platelet Morphology NORMAL APPEARANCE RBC Morph Micro Appear 1+ ACANTHOCYTES PT 13.8 H INR 1.2 APTT 27.1 Sodium 135 Potassium 3.7 Chloride 100 L Carbon Dioxide 27 Anion Gap 8.0 BUN 20 Creatinine 1.5 H Estimated GFR (MDRD) 46 L Glucose 141 H Lactic Acid Calcium 9.0 Total Bilirubin 0.5 AST 24 ALT 27 Alkaline Phosphatase 69 Troponin I High Sens B-Natriuretic Peptide Total Protein 7.1 Albumin 3.7 Globulin 3.4 Albumin/Globulin Ratio 1.1 Lipase 28 Urine Color Urine Clarity Urine pH Ur Specific [place] Urine Protein Urine Glucose (UA) Urine Ketones Urine Occult Blood Urine Nitrite Urine Bilirubin Urine Urobilinogen Ur Leukocyte Esterase Urine RBC Urine WBC Ur Squamous Epith Cells Amorphous Sediment Urine Bacteria Ur Microscopic Review Urine Culture Comments 11/29/19 11/29/19 11/29/19 21:11 21:11 21:11 WBC RBC Hgb Hct MCV MCH MCHC RDW Plt Count MPV Neut # (Auto) Lymph # (Auto) [place] # (Auto) Eos # (Auto) Baso # (Auto) Absolute Nucleated RBC Band Neuts % (Manual) Abnorm Lymph % (Manual) Nucleated RBC % Neutrophils # (Manual) Lymphocytes # (Manual) Monocytes # (Manual) Eosinophils # (Manual) Basophils # (Manual) Differential Comment Manual Slide Review Platelet Estimate Platelet Morphology RBC Morph Micro Appear PT INR APTT Sodium Potassium Chloride Carbon Dioxide Anion Gap BUN Creatinine Estimated GFR (MDRD) Glucose Lactic Acid 1.2 Calcium Total Bilirubin AST ALT Alkaline Phosphatase Troponin I High Sens 18.9 B-Natriuretic Peptide 89 Total Protein Albumin Globulin Albumin/Globulin Ratio Lipase Urine Color Urine Clarity Urine pH Ur Specific [place] Urine Protein Urine Glucose (UA) Urine Ketones Urine Occult Blood Urine Nitrite Urine Bilirubin Urine Urobilinogen Ur Leukocyte Esterase Urine RBC Urine WBC Ur Squamous Epith Cells Amorphous Sediment Urine Bacteria Ur Microscopic Review Urine Culture Comments 11/29/19 21:46 WBC RBC Hgb Hct MCV MCH MCHC RDW Plt Count MPV Neut # (Auto) Lymph # (Auto) [place] # (Auto) Eos # (Auto) Baso # (Auto) Absolute Nucleated RBC Band Neuts % (Manual) Abnorm Lymph % (Manual) Nucleated RBC % Neutrophils # (Manual) Lymphocytes # (Manual) Monocytes # (Manual) Eosinophils # (Manual) Basophils # (Manual) Differential Comment Manual Slide Review Platelet Estimate Platelet Morphology RBC Morph Micro Appear PT INR APTT Sodium Potassium Chloride Carbon Dioxide Anion Gap BUN Creatinine Estimated GFR (MDRD) Glucose Lactic Acid Calcium Total Bilirubin AST ALT Alkaline Phosphatase Troponin I High Sens B-Natriuretic Peptide Total Protein Albumin Globulin Albumin/Globulin Ratio Lipase Urine Color YELLOW Urine Clarity HAZY Urine pH 8.0 H Ur Specific [place] 1.020 Urine Protein NEGATIVE Urine Glucose (UA) NEGATIVE Urine Ketones NEGATIVE Urine Occult Blood SMALL H Urine Nitrite POSITIVE H Urine Bilirubin NEGATIVE Urine Urobilinogen 0.2 (NORMAL) Ur Leukocyte Esterase TRACE H Urine RBC 6-10 H Urine WBC 11-25 H Ur Squamous Epith Cells RARE Squamous Amorphous Sediment Few Urine Bacteria Many H Ur Microscopic Review INDICATED Urine Culture Comments INDICATED - Rads (name of study) chest xray Radiology: Prelim report reviewed (no acute infiltrates nor abnormal), See rad report PD MEDICAL DECISION MAKING - ED course Complexity details: reviewed results (Urinalysis shows signs of infection. His white count is elevated. Lactate is normal. Chest x-ray is clear. Presume UTI post procedure.), re-evaluated patient, considered differential (As of fever so we will look for common infections. He has had some dysuria. We will get labs and urine and chest x-ray. No signs of wound infection clinically.), d/w patient ED course: Spoke with Dr. Reese our hospitalist who asked for a CT KUB to ensure no stones or obstruction concurrent with the urinary tract infection. CT is pending. The patient was given IV fluids and Tylenol and Toradol and also started on antibiotics. He is tachycardic and generally weak but normal lactate. Concern for early sepsis. Departure - Departure Disposition: 66 [facility] DC/Xfer Clinical Impression: Generalized weakness Fever Qualifiers: Fever type: unspecified Qualified Code(s): R50.9 - Fever, unspecified UTI (urinary tract infection) Qualifiers: Urinary tract infection type: site unspecified Hematuria presence: without hematuria Qualified Code(s): N39.0 - Urinary tract infection, site not specified Condition: Stable Record reviewed to determine appropriate education?: Yes
[2019-11-29] MEDS ORDERED: KETOROLAC 15 MG/ML VIAL IVP STA (23:10)
[2019-11-29] MEDS ORDERED: SODIUM CHLORIDE FLUSH 0.9% 10 ML SYRINGE IVP PRN (23:51)
[2019-11-29] MEDS ORDERED: ACETAMINOPHEN 325 MG TABLET PO PRN (23:56)
[2019-11-29] MEDS ORDERED: ONDANSETRON ODT 4 MG TABLET TL PRN (23:56)
[2019-11-29] MEDS ORDERED: MORPHINE 2 MG/ML CARPUJECT IVP PRN (23:56)
[2019-11-29] MEDS ORDERED: ONDANSETRON 4 MG/2 ML VIAL IVP PRN (23:56)
--- NOTE | 2019-11-30 02:11 | HISTORY & PHYSICAL EXAMINATION ---
Chief Complaint - Chief Complaint Chief Complaint: Weakness History of Present Illness - Admitted From Admitted From:: Home - History Obtained From Records Reviewed: Yes History obtained from: Patient, ER Physician, EMR - History of Present Illness HPI Comment/Other: This is a 74-year-old male with a past medical history significant for recurrent kidney stones, migraines, hyperlipidemia, BPH who presents today complaining of weakness that began yesterday. He underwent a lumbar fusion of L1-L2 on November 13 at [place]. He states he was hospitalized for about 6 days and since then he has been doing well at home. He states he has a history of chronic back pain and has multiple surgeries including fusions and laminectomies. He states since he has been home, he is working with home health and he has been ambulating with a walker. He had a Miller catheter in place that was removed yesterday by his urologist, Dr. Salazar. He states he was started on antibiotics yesterday for urinary tract infection. He started to feel a little weak in his lower extremities yesterday and today it progressed and so he sought medical attention. He reports no back pain, fevers, chills. He reports no bowel incontinence and states he feels constipated and his last bowel movement was about 2 to 3 days ago. He reports no dysuria, urgency, frequency, hematuria. He denies any chest pain, dyspnea, cough. He also denies sore throat, nasal congestion. He reports no numbness in his lower extremities and denies saddle anesthesia. He states his back pain has been well controlled on oxycodone at home. In the emergency department, he was found to be febrile with temperature of 38 C. He was tachycardic with a heart rate of 135. His blood pressure was 113/67. He was not tachypneic. He was saturating 97% on 2 L of oxygen via nasal cannula. Labs were significant for a white count of 23.7 with a left shift. His creatinine was stable at 1.5. His lactic acid was normal at 1.2. His troponin was also normal at 18.9. Urinalysis revealed positive nitrites, trace leukocyte esterase, 11-25 WBCs and many bacteria. He was given vancomycin and meropenem IV in the emergency department. He was also given 2 L of normal saline. He underwent a CT of the abdomen and pelvis which did not reveal any renal obstruction. Medicine was consulted for admission given the above findings. I did discuss goals of care with the patient and he would like to be a full code. History - Past Medical History Cardiovascular: reports: High cholesterol Respiratory: reports: Sleep apnea Neuro: reports: None Endocrine/Autoimmune: reports: None GI: reports: Colon polyps : reports: Frequency, Kidney stones HEENT: reports: None Psych: reports: Depression, Anxiety Musculoskeletal: reports: Osteoarthritis, Osteoporosis, Chronic back pain, Other Derm: reports: Eczema MRSA Hx?: No - Past Surgical History General: reports: Splenectomy, Colonoscopy Ortho: reports: Shoulder arthroplasty, Spine surgery, Other HEENT: reports: Tonsil/Adenoidectomy, Other - Family & Social History Family History Comment/Other: His father had bladder cancer. He in his 90s. His mother lived to her 90s as well. Living arrangement: At home Living Situation: With spouse/s.o. Social History Notes: He is a non-smoker. He does not drink alcohol. He lives at home with his . He has been retired for 17 years and has lived on [facility] since his long-term. 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 - POLST Patient has POLST: No Meds/Allgy - Home Medications Home Medications: Ambulatory Orders Medication Instructions Recorded Confirmed Cholecalciferol (Vitamin D3) 2,000 unit PO BID 08/23/12 02/04/19 [Vitamin D3] Verapamil [Calan] 80 mg PO BID 08/23/12 02/11/19 clonazePAM [Clonazepam] 0.5 mg PO QPM PRN 08/23/12 02/04/19 Atorvastatin Calcium [Lipitor] 20 mg PO DAILY 10/02/12 02/04/19 Magnesium Oxide [Mag-Oxide] 800 mg PO QPM 11/12/12 02/11/19 Tamsulosin [Flomax] 0.4 mg PO DAILY 12/17/12 02/11/19 Sumatriptan Succinate [Imitrex] 100 mg PO ONCE PRN 08/18/14 02/11/19 Aspirin/Acetaminophen/Caffeine 1 each PO ONCE PRN 02/04/19 02/04/19 [Excedrin Migraine Caplet] Cyanocobalamin (Vitamin B-12) 100 mcg PO QPM 02/04/19 02/11/19 [Vitamin B-12 (100mcg tab)] DULoxetine [Cymbalta] 30 mg PO DAILY 02/04/19 02/04/19 Testosterone [Androgel] 5 gm TD DAILY 02/04/19 02/11/19 Tolterodine [Detrol LA] 4 mg PO DAILY 02/04/19 02/11/19 Trospium Chloride [Trospium 60 mg PO DAILY 02/04/19 02/11/19 Chloride ER] - Allergies Allergies/Adverse Reactions: Allergies Allergy/AdvReac Type Severity Reaction Status Date / Time ampicillin [Ampicillin] Allergy Intermediate Cramps Verified 11/29/19 20:49 adhesive Allergy Mild Rash Verified 11/29/19 20:49 Review of Systems - Constitutional Constitutional: reports: Weakness. denies: Fatigue, Fever, Chills, Poor appetite - Eyes Eyes: denies: Blurred vision - Ears, Nose & Throat Ears, Nose & Throat: denies: Nasal discharge, Nasal congestion, Sore throat - Cardiovascular Cariovascular: denies: Chest pain, Edema, Lightheadedness, Exertional dyspnea, Decr. exercise tolerance - Respiratory Respiratory: denies: Cough, SOB at rest, SOB with exertion - Gastrointestinal Gastrointestinal: reports: Constipation. denies: Abdominal pain, Diarrhea, Bloody stools, Nausea, Vomiting - Genitourinary Genitourinary: denies: Dysuria, Frequency, Urgency, Hematuria - Musculoskeletal Musculoskeletal: reports: Back pain, Muscle weakness. denies: Limited range of motion - Integumentary Integumentary: denies: Rash - Neurological Neurological: reports: General weakness. denies: Focal weakness, Dizziness, Numbness - Hematologic/Lymphatic Hematologic/Lymphatic: denies: Anemia, Bleeding tendencies - All Other Systems All Other Systems: reports: Reviewed and negative Prior Level of Functionality: He is independent with his ADLs. He currently ambulates with a walker after his lumbar spine fusion surgery. He has home health. Exam - Vital Signs Reviewed Vital Signs: Yes Vital Signs: Vital Signs x48h Temp Pulse Resp BP Pulse Ox 11/30/19 01:30 95 22 106/46 L 94 11/30/19 01:00 36.6 C 100 20 106/62 98 11/30/19 00:30 36.7 C 102 H 22 105/63 97 11/30/19 00:00 36.6 C 104 H 22 98/54 L 98 11/29/19 23:30 106 H 24 98/52 L 97 11/29/19 23:00 36.6 C 108 H 16 118/62 97 11/29/19 22:30 36.6 C 110 H 16 120/80 98 11/29/19 22:09 106 H 24 109/51 L 97 11/29/19 20:49 38.0 C H 135 H 18 113/67 92 - Physical Exam General Appearance: positive: No acute distress, Alert Eyes Bilateral: positive: Normal inspection, Conjunctivae nml ENT: positive: ENT inspection nml, Other (Nasal cannula in place) Neck: positive: Nml inspection Respiratory: positive: No respiratory distress. negative: Wheezes, Rales Cardiovascular: positive: No murmur, Tachycardia. negative: Irregularly irr egular, Bradycardia, Systolic murmur Abdomen: positive: Non-tender, No distention, Abnml bowel sounds (Hypoactive.). negative: Tenderness, Guarding, Rebound Back: positive: Other (Bedford in place over the lumbar spine. The site appears clean without any erythema or purulent discharge. He has no lumbar spine tenderness.) Skin: positive: Warm, Dry Extremities: positive: Full ROM, Pedal edema (Trace to +1 pitting edema in right lower extremity.). negative: Calf tenderness, Zeeshan's sign/cords Neurologic/Psychiatric: positive: Oriented x3, Motor nml, Sensation nml, Other (He has about 5 out of 5 motor strength in all 4 extremities. Sensation is grossly intact. No obvious focal deficits.). negative: Disoriented to person, Disoriented to place, Disoriented to time, Sensory loss, Slurred/abnml speech Sepsis Event Note (H) - Evaluation Current Stage of Sepsis: Sepsis - Sepsis Criteria Sepsis Criteria: Suspected or Documented, Recorded Temperature greater than 38.3C or Less than 36C, Recorded Heart Rate greater than 90 bpm, WBC count greater than 12,000 or less than 4000 Conclusion/Plan - Problem List (1) Sepsis Conclusion/Plan: This is likely secondary to urinary tract infection given the urinalysis findings. His heart rate has improved after receiving IV fluids but he remains tachycardic. Fortunately, he is normotensive and his lactic acid is within normal limits. There is no evidence of end-organ damage. Do not suspect an infection of the lumbar spine as the site of the incision appears clean, dry, and intact. He also has no lumbar spine tenderness. We will start him on vancomycin and meropenem IV empirically and will de-escalate based off of urine cultures. Continue with IV fluids. Trend his white count and fever curve. We will check for COVID-19. Follow-up blood cultures. If he does not improve with antibiotics then we will need to evaluate for other possible source of infection and this would likely include imaging of the lumbar spine given his recent intervention. (2) UTI (urinary tract infection) Conclusion/Plan: This is the likely source of his sepsis. His urinalysis is suggestive of infec tion. He did have a Miller catheter in place that was just removed yesterday. He had been started on antibiotics but he is unsure of which one and only took [address] did reveal bilateral nephrolithiasis but no evidence of obstruction. Given the recent instrumentation, we will start him on vancomycin and meropenem IV empirically. Will de-escalate based off of urine cultures. Qualifiers: Urinary tract infection type: acute cystitis Hematuria presence: without hematuria Qualified Code(s): N30.00 - Acute cystitis without hematuria (3) Hypoxia Conclusion/Plan: He is requiring 2 L of oxygen via nasal cannula as he reportedly desaturated on room air. His chest x-ray is unremarkable. He does have lower extremity edema of the right leg. His troponin and BNP are within normal limits. We will obtain Dopplers of the lower extremities to evaluate for DVT as he may potentially have a pulmonary embolism given his recent surgical intervention. We we will continue supplemental oxygen for goal oxygen saturation greater than 92%. (4) Status post lumbar spinal fusion Conclusion/Plan: Low suspicion of infection at this time given his physical exam findings. We will continue oxycodone as needed for pain control. (5) CKD (chronic kidney disease), stage III Conclusion/Plan: His renal function is currently at baseline with a creatinine of 1.5. We will continue to monitor while he is on IV antibiotics. Daily BMPs. (7) Hyperlipidemia Conclusion/Plan: We will continue his home statin. (8) Migraines Conclusion/Plan: We will continue Imitrex as needed. (9) BPH (benign prostatic hyperplasia) Conclusion/Plan: We will continue his home Flomax. - Lab Results Lab results reviewed: Yes Fish Bones: 11/29/19 21:11 11/29/19 21:10 - Diagnostic Imaging Results Diagnostic Imaging Results: positive: Final report reviewed - EKG Results EKG Interpreted Independently: Yes Core Measures - Anticipated LOS I expect patient to be DC'd or transferred within 96 hours.: Yes - Issues Hospital Issues and Management Plan: 74-year-old male who had a lumbar spine fusion surgery on the sixth at [facility] presents with weakness found to have sepsis secondary to a urinary tract infection. Will admit for IV antibiotics. - DVT/VTE - Prophylaxis VTE/DVT Device ordered at admit?: No Not Ordered - Medical Reason: Contraindicated VTE/DVT Prophylaxis med ordered at admit?: Yes
[2019-11-30] MEDS ORDERED: LACTATED RINGERS 1,000 ML IV ONE (02:30)
[2019-11-30] MEDS: SODIUM CHLORIDE FLUSH 0.9% 10 ML SYRINGE IVP SCH ×3 (03:48→16:52)
[2019-11-30] MEDS ORDERED: MEROPENEM 1 GM in SODIUM CHLORIDE 0.9% MINIBAG 100 ML IV SCH (05:00)
[2019-11-30] MEDS: LACTATED RINGERS 1,000 ML IV SCH ×3 (05:55→20:38)
[2019-11-30 06:49] LABS: BASOPHILS # (AUTO) 0.1 10^3/uL (0.0-0.1); BASOPHILS % (AUTO) 0.3 %; EOSINOPHILS % (AUTO) 0.1 %; HGB - HEMOGLOBIN 11.3 g/dL (14.0-18.0); LYMPHOCYTES # (AUTO) 1.2 10^3/uL (1.5-3.5); LYMPHOCYTES % (AUTO) 4.9 %; MEAN CORPUSCULAR HEMOGLOBIN 32.2 pg (27.0-31.0); MEAN CORPUSCULAR VOLUME 97.4 fL (80.0-94.0); MEAN PLATELET VOLUME 9.7 fL (7.4-11.4); MONOCYTES # (AUTO) 1.9 10^3/uL (0.0-1.0); MONOCYTES % (AUTO) 8.1 %; NEUTROPHILS # (AUTO) 20.1 10^3/uL (1.5-6.6); NEUTROPHILS % (AUTO) 85.7 %; PLT - PLATELET COUNT 401 10^3/uL (130-450); RED BLOOD COUNT 3.51 10^6/uL (4.70-6.10); RED CELL DISTRIBUTION WIDTH 13.4 % (12.0-15.0); WHITE BLOOD COUNT 23.5 x10^3/uL (4.8-10.8)
[2019-11-30 07:02] LABS: CALCIUM 8.3 mg/dL (8.5-10.3); CREATININE 1.2 mg/dL (0.6-1.2); PHOSPHORUS 2.7 mg/dL (2.5-4.6)
[2019-11-30] MEDS: oxyCODONE 5 MG TABLET PO PRN ×3 (07:22→19:28)
[2019-11-30 07:53] LABS: DIFFERENTIAL COMMENT MANUAL=AUTO DIFF; PLATELET ESTIMATE, MANUAL NORMAL (130-450,000) (NORMAL); PLATELET MORPHOLOGY NORMAL APPEARANCE (NORMAL); RBC MORPHOLOGY (MULTIPLE) NORMAL APPEARANCE (NORMAL)
[2019-11-30] MEDS: ENOXAPARIN 40 MG/0.4 ML SYRINGE SUBQ SCH (08:32)
[2019-11-30] MEDS ORDERED: SUMAtriptan 25 MG TABLET PO PRN (10:28)
--- NOTE | 2019-11-30 10:44 | CT Report ---
PROCEDURE: Abdomen/Pelvis WO INDICATIONS: fever and UTI TECHNIQUE: Noncontrast 5 mm thick sections acquired from the diaphragms to the symphysis. 5 mm coronal and sagi ttal reformats were then performed. For radiation dose reduction, the following was used: automated exposure control, adjustment of mA and/or kV according to patient size. COMPARISON: None. FINDINGS: Image quality: Excellent. ABDOMEN: Lung bases: Mild atelectatic changes and slight groundglass opacity at both lung bases.. Heart size is normal. Solid organs: Liver is normal size. There is a hypodensity in the medial aspect of the right hepatic lobe measuring 1.2 cm, probably a cyst or benign hemangioma. The spleen is likely surgically absent. Gallbladder is unremarkable. Pancreas is normal in contours. No adrenal nodules. Kidneys demonstrate multiple small bilateral collecting system calcifications, the largest on the rig ht in the mid pole measuring 6 mm and the largest on the left in the upper pole measuring 7 mm. There is no hydronephrosis, hydroureter, or ureteral calcifications Peritoneum and bowel: Unenhanced bowel loops demonstrate normal wall thickness and caliber. No free fluid or air. Nodes and vessels: No retroperitoneal or mesenteric adenopathy by size criteria. Aorta and inferior vena cava are normal in caliber. The inferior vena cava is decompressed suggesting hypovolemia Miscellaneous: No ventral hernias. PELVIS: Genitourinary: Bladder wall thickness is normal. There is air anteriorly in the urinary bladder, po tentially iatrogenic. No bladder masses or calcifications. The prostate gland size is within normal l imits Miscellaneous: No inguinal hernias or adenopathy. Bones: No suspicious bony lesions. No vertebral body compression fractures. Surgical changes in th e lumbar spine and an epidural stimulator device are present. IMPRESSION: 1. No evidence of obstructive uropathy. 2. Multiple bilateral intrarenal calcifications. 3. Urinary bladder air is most likely iatrogenic. 4. Splenectomy. 5. Possible hypovolemia. Correlate clinically. 6. Concordant with preliminary report. Reviewed by: Mariaa Sullivan MD on 11/30/2019 10:43 AM PDT Approved by: Mariaa Sullivan MD on 11/30/2019 10:43 AM PDT Station ID: [id number]
[2019-11-30] MEDS: BISACODYL 10 MG SUPP PR PRN (10:54)
--- NOTE | 2019-11-30 11:02 | Ultrasound Report ---
PROCEDURE: Duplex Ext Veins Bilateral INDICATIONS: Lower extremity edema TECHNIQUE: Real-time imaging, as well as color and pulse Doppler interrogation, were performed of the deep veins of both legs from the inguinal ligament to the popliteal fossa. COMPARISON: None available. FINDINGS: The deep veins are normally compressible, and free of intraluminal thrombus. Color and pu lse Doppler demonstrate normal phasic intravascular flow. There is normal augmentation response to d istal compression maneuver. IMPRESSION: No findings of deep venous thrombosis are seen. Reviewed by: Kirt Casanova MD on 11/30/2019 10:01 AM SCOOTER Approved by: Kirt Casanova MD on 11/30/2019 10:01 AM SCOOTER Station ID: [id number]
[2019-11-30] MEDS: VANCOMYCIN INJ 1 GM, VANCOMYCIN INJ 500 MG in SODIUM CHLORIDE 0.9% 500 ML IV SCH (13:49)
[2019-11-30] MEDS ORDERED: SODIUM CHLORIDE 0.9% 0 ML IV ONE (13:51)
[2019-11-30] MEDS ORDERED: VANCOMYCIN INJ 1 GM, VANCOMYCIN INJ 500 MG in SODIUM CHLORIDE 0.9% 250 ML IV SCH (14:00)
--- NOTE | 2019-11-30 15:14 | PHARMACY PROGRESS NOTE ---
- Best Possible Medication History Admit Date and Time: 11/29/19 4477 Processed by: Pharmacy Medication History completed: Yes Patient Interview: Completed Secondary Source(s): Written medication list, Pharmacy records, Insurance records As the person ultimately responsible for medication therapy, providers are able to order a medication from an existing home medication list in [facility] via the "Reconcile Routine" prior to Confirmation of that medication by support merchandiser. Such practice is discouraged except when the physician, in their clinical judgment, deems that a medical need exists for a medication without regard to previous use.
[2019-11-30] MEDS: MEROPENEM 1 GM in SODIUM CHLORIDE 0.9% MINIBAG 100 ML IV SCH (16:51)
[2019-11-30] MEDS ORDERED: VANCOMYCIN INJ 1 GM in SODIUM CHLORIDE 0.9% 250 ML IV SCH (23:00)
[2019-12-01] MEDS ORDERED: SUMAtriptan 25 MG TABLET PO STA ×2 (00:18→20:40)
[2019-12-01] MEDS: MEROPENEM 1 GM in SODIUM CHLORIDE 0.9% MINIBAG 100 ML IV SCH ×2 (00:30→07:40)
[2019-12-01] MEDS: SODIUM CHLORIDE FLUSH 0.9% 10 ML SYRINGE IVP SCH ×4 (00:31→23:53)
[2019-12-01] MEDS: LACTATED RINGERS 1,000 ML IV SCH (00:35)
[2019-12-01 05:33] LABS: BASOPHILS # (AUTO) 0.1 10^3/uL (0.0-0.1); BASOPHILS % (AUTO) 0.5 %; EOSINOPHILS # (AUTO) 0.2 10^3/uL (0.0-0.7); EOSINOPHILS % (AUTO) 1.5 %; HGB - HEMOGLOBIN 11.3 g/dL (14.0-18.0); LYMPHOCYTES # (AUTO) 1.7 10^3/uL (1.5-3.5); MEAN CORPUSCULAR HEMOGLOBIN 32.3 pg (27.0-31.0); MEAN CORPUSCULAR HGB CONC 32.8 g/dL (32.0-36.0); MEAN CORPUSCULAR VOLUME 98.3 fL (80.0-94.0); MEAN PLATELET VOLUME 9.7 fL (7.4-11.4); MONOCYTES # (AUTO) 1.3 10^3/uL (0.0-1.0); MONOCYTES % (AUTO) 8.2 %; NEUTROPHILS % (AUTO) 78.3 %; PLT - PLATELET COUNT 389 10^3/uL (130-450); RED CELL DISTRIBUTION WIDTH 13.6 % (12.0-15.0); WHITE BLOOD COUNT 15.3 x10^3/uL (4.8-10.8)
[2019-12-01 05:45] LABS: CALCIUM 8.1 mg/dL (8.5-10.3); CREATININE 1.1 mg/dL (0.6-1.2); MAGNESIUM 1.8 mg/dL (1.7-2.8); PHOSPHORUS 1.9 mg/dL (2.5-4.6)
--- NOTE | 2019-12-01 08:22 | PHARMACY PROGRESS NOTE ---
- Therapy Status Vancomycin regimen day #: 2 Therapy status: Awaiting steady state Basis for treatment: Empirical Treatment indication: UROSEPSIS Trough goal: 15-20 Concurrent antibiotics: MEROPENEM - SHARON Risk Risk level for Acute Kidney Injury: Moderate Acute Kidney Injury risk factors: Goal trough >15, Sepsis - Monitoring and Recommendation Clinical response to treatment: I&O Previous 24 hours 11/29/19 11/30/19 12/01/19 23:59 23:59 23:59 Intake Total 2783.333 4025 1181.667 Output Total 700 640 Balance 2783.333 3325 541.667 Lab Results 12/01/19 11/30/19 11/29/19 05:25 06:15 21:10 BUN 14 18 20 Creatinine 1.1 1.2 1.5 H Estimated GFR (MDRD) 66 L 60 L 46 L Cultures 11/29/19 21:04 Blood - Right Iv-Start Blood Culture - Preliminary NO GROWTH AFTER 1 DAY 11/29/19 21:11 Blood - Right Hand Blood Culture - Preliminary NO GROWTH AFTER 1 DAY 11/29/19 21:46 Urine,Catheterized Urine Culture - Final No growth Monitoring plan: Daily serum creatinine Next trough due prior to maintenance dose #: 3 Next trough due (date/time): 12/01 @0130 Areas for additional monitoring: IV to PO when appropriate, Therapy de- escalation based on culture results Pharmacy recommendation: Continue current regime
[2019-12-01] MEDS: VANCOMYCIN INJ 1 GM, VANCOMYCIN INJ 500 MG in SODIUM CHLORIDE 0.9% 500 ML IV SCH (08:23)
[2019-12-01] MEDS: ENOXAPARIN 40 MG/0.4 ML SYRINGE SUBQ SCH (08:24)
[2019-12-01] MEDS: oxyCODONE 5 MG TABLET PO PRN ×3 (08:24→23:53)
[2019-12-01] MEDS: BISACODYL 10 MG SUPP PR PRN (08:24)
--- NOTE | 2019-12-01 11:41 | PROVIDER PROGRESS NOTE ---
Subjective - Prog Note Date Prog Note Date: 12/01/19 Prog Note Time: 17:17 - Subjective Pt reports feeling: Improved Subjective: He feels like he is almost back to normal. His head is clearer. Denies chest pain, palpitations, shortness of breath. Back pain is controlled. Current Medications - Current Medications Current Medications: Active Medications Acetaminophen (Tylenol) 650 mg PO Q4HR PRN PRN Reason: Pain 1 to 4 Bisacodyl (Dulcolax Supp) 10 mg CA DAILY PRN PRN Reason: Constipation Last Admin: 12/01/19 08:24 Dose: 10 mg Documented by: Ciprofloxacin (Cipro) 500 mg PO BID [facility] Last Admin: 12/01/19 12:15 Dose: 500 mg Documented by: Enoxaparin Sodium (Lovenox) 40 mg SUBQ DAILY [facility] Last Admin: 12/01/19 08:24 Dose: 40 mg Documented by: Morphine Sulfate (Morphine (Carpuject)) 2 mg IVP Q2HR PRN PRN Reason: Pain 8 to 10 Ondansetron HCl (Zofran Inj) 4 mg IVP Q6HR PRN PRN Reason: Nausea / Vomiting Ondansetron HCl (Zofran Odt) 4 mg TL Q6HR PRN PRN Reason: Nausea / Vomiting Oxycodone HCl (Roxicodone) 10 mg PO Q6HR PRN PRN Reason: PAIN >8 Last Admin: 12/01/19 16:23 Dose: 10 mg Documented by: Sodium Chloride (Normal Saline Flush 0.9%) 10 ml IVP PRN PRN PRN Reason: NEEDED PER PROVIDER ORDERS Sodium Chloride (Normal Saline Flush 0.9%) 10 ml IVP 0100,0900,1700 [facility] Last Admin: 12/01/19 08:24 Dose: Not Given Documented by: Sumatriptan Succinate (Imitrex) 25 mg PO ONCE PRN PRN Reason: HEADACHE Stop: 12/05/19 10:27 Last Admin: 11/30/19 10:54 Dose: 25 mg Documented by: Verapamil [Calan] 80 mg PO BID 08/23/12 clonazePAM [Clonazepam] 0.25 mg PO QPM PRN 08/23/12 Atorvastatin Calcium [Lipitor] 20 mg PO DAILY 10/02/12 Magnesium Oxide [Mag-Oxide] 800 mg PO QPM 11/12/12 Tamsulosin [Flomax] 0.4 mg PO BID 12/17/12 Sumatriptan Succinate [Imitrex] 25 - 100 mg PO ONCE PRN 08/18/14 Testosterone [Androgel] 5 gm TD DAILY 02/04/19 Acetaminophen [Tylenol Extra Strength] 1,000 mg PO Q8H 11/30/19 Bethanechol Chloride 10 mg PO TID 11/30/19 Bisacodyl Supp [Dulcolax Supp] 10 mg CA DAILY PRN 11/30/19 Calcium Carbonate 500 mg PO QPM 11/30/19 Cholecalciferol (Vitamin D3) [Vitamin D3] 25 mcg PO BID 11/30/19 Docusate Sodium [Stool Softener] 250 mg PO BID 11/30/19 Senna [Senokot] 25.8 mg PO BID 11/30/19 Tizanidine HCl 2 mg PO TID 11/30/19 Trospium Chloride [Trospium Chloride ER] 60 mg PO DAILY 11/30/19 oxyCODONE [Roxicodone] 5 - 10 mg PO Q4H PRN 11/30/19 polyethylene glycoL 3350 [Miralax] 17 gm PO DAILY 11/30/19 Objective - Vital Signs/Intake & Output Reviewed Vital Signs: Yes Vital Signs: Vital Signs x48h Temp Pulse Pulse Resp BP Pulse Ox 12/01/19 08:48 36.8 C 98 18 125/69 96 12/01/19 06:20 36.9 C 98 18 95 Intake & Output: Intake & Output 11/28/19 11/29/19 11/30/19 12/01/19 23:59 23:59 23:59 23:59 Intake Total 2783.333 4025 2521.667 Output Total 700 640 Balance 2783.333 3325 1881.667 - Objective General Appearance: positive: No acute distress, Alert Eyes Bilateral: positive: PERRL ENT: positive: No signs of dehydration Neck: positive: No JVD Respiratory: positive: Chest non-tender. negative: Wheezes, Rales, Rhonchi Cardiovascular: positive: Regular rate & rhythm. negative: Gallop/S4, Friction rub Abdomen: positive: Non-tender, No organomegaly, Nml bowel sounds, No distention Extremities: positive: Full ROM, No pedal edema Neurologic/Psychiatric: positive: Oriented x3, CN's nml (2-12), Motor nml - Lab Results Fish Bones: 12/01/19 05:25 12/01/19 05:25 Other Labs: Lab Results x24hrs 12/01/19 12/01/19 11/30/19 Range/Units 05:25 05:25 05:33 WBC 15.3 H (4.8-10.8) x10^3/uL RBC 3.50 L (4.70-6.10) 10^6/uL Hgb 11.3 L (14.0-18.0) g/dL Hct 34.4 L (42.0-52.0) % MCV 98.3 H (80.0-94.0) fL MCH 32.3 H (27.0-31.0) pg MCHC 32.8 (32.0-36.0) g/dL RDW 13.6 (12.0-15.0) % Plt Count 389 (130-450) 10^3/uL MPV 9.7 (7.4-11.4) fL Neut # (Auto) 12.0 H (1.5-6.6) 10^3/uL Lymph # (Auto) 1.7 (1.5-3.5) 10^3/uL [place] # (Auto) 1.3 H (0.0-1.0) 10^3/uL Eos # (Auto) 0.2 (0.0-0.7) 10^3/uL Baso # (Auto) 0.1 (0.0-0.1) 10^3/uL Absolute Nucleated RBC 0.00 x10^3/uL Nucleated RBC % 0.0 /100WBC Sodium 134 L (135-145) mmol/L Potassium 3.6 (3.5-5.0) mmol/L Chloride 105 (101-111) mmol/L Carbon Dioxide 23 (21-32) mmol/L Anion Gap 6.0 (6-13) BUN 14 (6-20) mg/dL Creatinine 1.1 (0.6-1.2) mg/dL Estimated GFR (MDRD) 66 L (>89) Glucose 98 (70-100) mg/dL Calcium 8.1 L (8.5-10.3) mg/dL Phosphorus 1.9 L (2.5-4.6) mg/dL Magnesium 1.8 (1.7-2.8) mg/dL Coronavirus (PCR) NEGATIVE ABX Reporting Has patient been on IV antibiotics over the past 48 hours?: Yes Sepsis Event Note (H) - Evaluation Current Stage of Sepsis: Resolved - Sepsis Criteria Sepsis Criteria: Suspected or Documented, Recorded Temperature greater than 38.3C or Less than 36C, Recorded Heart Rate greater than 90 bpm, WBC count greater than 12,000 or less than 4000 Assessment/Plan - Problem List (1) Sepsis Impression: 11/29:This is likely secondary to urinary tract infection given the urinalysis findings. His heart rate has improved after receiving IV fluids but he remains tachycardic. Fortunately, he is normotensive and his lactic acid is within normal limits. There is no evidence of end-organ damage. Do not suspect an infection of the lumbar spine as the site of the incision appears clean, dry, and intact. He also has no lumbar spine tenderness. We will start him on vancomycin and meropenem IV empirically and will de-escalate based off of urine cultures. Continue with IV fluids. Trend his white count and fever curve. We will check for COVID-19. Follow-up blood cultures. If he does not improve with antibiotics then we will need to evaluate for other possible source of in fection and this would likely include imaging of the lumbar spine given his recent intervention. 11/30:Doing so well that seen by physical therapy and he tolerated the session well. All criteria for sepsis have resolved. Able to walk 60 feet in his room. He is already seeing home health before this admission. This is in relationship to his back surgery. Really wants to go home but I told him that he was just admitted with sepsis. I like to see him on oral antibiotic therapy before I send him home. As such we will stop IV antibiotics and switch him to orals. Observe him overnight and then send him home tomorrow if he does well. (2) UTI (urinary tract infection) Conclusion/Plan: 11/29: This is the likely source of his sepsis. His urinalysis is suggestive of infection. He did have a Miller catheter in place that was just removed yesterday. He had been started on antibiotics but he is unsure of which one and only took [address] did reveal bilateral nephrolithiasis but no evidence of obstruction. Given the recent instrumentation, we will start him on vancomycin and meropenem IV empirically. Will de-escalate based off of urine cultures. 11/30: Blood cultures are negative. Urine culture has no growth. White cell count has come down. He was 23.7 on admission, and today is 15.3. He was on meropenem and vancomycin. Only had 1 day of it.Last temperature that was elevated was 38 degrees at 849 on November 28. Since then he has been steadily afebrile. Plan: Change to Cipro 500 twice daily. Watch overnight. Watch white cell count tomorrow and see how he does. Qualifiers: Urinary tract infection type: acute cystitis Hematuria presence: without hematuria Qualified Code(s): N30.00 - Acute cystitis without hematuria (3) Hypoxia Conclusion/Plan: 11/29: He is requiring 2 L of oxygen via nasal cannula as he reportedly desaturated on room air. His chest x-ray is unremarkable. He does have lower extremity edema of the right leg. His troponin and BNP are within normal limits. We will obtain Dopplers of the lower extremities to evaluate for DVT as he may potentially have a pulmonary embolism given his recent surgical intervention. We we will continue supplemental oxygen for goal oxygen saturation greater than 92%. 11/30: Venous Dopplers had no DVT. He has not needed oxygen since yesterday afternoon. He has been 95 to 98% on room air.Hypoxia may been related to just being septic. Now that infection is controlled, hypoxia is resolved. (4) CKD (chronic kidney disease), stage III Conclusion/Plan: 11/29:His renal function is currently at baseline with a creatinine of 1.5. We will continue to monitor while he is on IV antibiotics. Daily BMPs. 11/30:Creatinine on admission was 1.5. Then he went to 1.2. Today he is 1.1. Previous creatinines in 2012, 2013, 2014, 2017 show him to vary between 1.2-2.3.
[2019-12-01] MEDS: CIPROFLOXACIN 250 MG TABLET PO SCH ×2 (12:15→20:14)
[2019-12-02 05:43] LABS: BASOPHILS # (AUTO) 0.1 10^3/uL (0.0-0.1); BASOPHILS % (AUTO) 0.5 %; EOSINOPHILS # (AUTO) 0.4 10^3/uL (0.0-0.7); EOSINOPHILS % (AUTO) 3.4 %; HGB - HEMOGLOBIN 11.1 g/dL (14.0-18.0); LYMPHOCYTES # (AUTO) 1.8 10^3/uL (1.5-3.5); LYMPHOCYTES % (AUTO) 16.4 %; MEAN CORPUSCULAR HEMOGLOBIN 31.8 pg (27.0-31.0); MEAN CORPUSCULAR VOLUME 96.3 fL (80.0-94.0); MONOCYTES # (AUTO) 1.2 10^3/uL (0.0-1.0); MONOCYTES % (AUTO) 10.3 %; NEUTROPHILS # (AUTO) 7.7 10^3/uL (1.5-6.6); PLT - PLATELET COUNT 405 10^3/uL (130-450); RED BLOOD COUNT 3.49 10^6/uL (4.70-6.10); RED CELL DISTRIBUTION WIDTH 13.2 % (12.0-15.0); WHITE BLOOD COUNT 11.1 x10^3/uL (4.8-10.8)
[2019-12-02 05:55] LABS: CALCIUM 8.2 mg/dL (8.5-10.3); CREATININE 1.1 mg/dL (0.6-1.2); MAGNESIUM 1.9 mg/dL (1.7-2.8); PHOSPHORUS 2.3 mg/dL (2.5-4.6)
[2019-12-02] MEDS ORDERED: POTASSIUM CHLORIDE 20 MEQ TABLET PO ONE (06:21)
[2019-12-02] MEDS: oxyCODONE 5 MG TABLET PO PRN (06:50)
--- NOTE | 2019-12-02 07:46 | Discharge Plan ---
Discharge Plan Problem Reviewed?: Yes Disposition: Home Health Service Condition: Stable Prescriptions: Ciprofloxacin [Cipro] 500 mg PO BID #56 tablet Diet: Regular Activity Restrictions: Activity as Tolerated Shower Restrictions: No Driving Restrictions: No Instruction Topics: Ciprofloxacin tablets, Probs Prostate Related Urinary Sx, Prostatitis Bacterial, Urinary Tract Infecs Men Health Concerns: You presented to our hospital with weakness and urinary urgency. We found you to have a severe infection called sepsis secondary to a urinary tract infection. You had undergone a previous lumbar fusion surgery earlier this month at [facility] and had a Miller catheter placed. The Miller catheter was recently dis continued. You are also on testosterone. Please be advised that testosterone will make your prostate grow. Sooner if you are having any prostate symptoms, you should consider stopping testosterone. You are already seeing home health RN and physical therapy as part of your therapy program from the back surgery. Plan of Treatment: 1. Urinary tract infections, in a man, symptoms require up to 4 weeks of antibiotic therapy. You will be sent home on 2 weeks worth of medication. Take 250 mg tablets of ciprofloxacin, 2 tablets twice a day. You have been given 1 refill. Please speak to your primary care provider if you should continue the antibiotic for 2 more weeks after stopping. Again you may have prostatitis as a cause of your urinary tract infection. 2. Resume home health physical therapy. 3. Please see your Urologist in followup, Dr. Sarika Roberts. Care Goals: To return to baseline physical status, prior to surgery. And to completely treat your urinary tract infection. Assessment: Patient understands treatment plan and goals and promises to follow through. No Smoking: If you smoke, Please STOP! Call for help. Follow-up with: Laila Collins PA [Primary Care Provider] - Sarika Roberts MD [Physician No Access] -
[2019-12-02] MEDS ORDERED: NEUTRA-PHOS 250 MG TABLET PO ONE (08:00)
[2019-12-02 08:14] VITALS: BP 130/75
[2019-12-02] MEDS: SODIUM CHLORIDE FLUSH 0.9% 10 ML SYRINGE IVP SCH (08:14)
[2019-12-02] MEDS: ENOXAPARIN 40 MG/0.4 ML SYRINGE SUBQ SCH (08:15)
[2019-12-02] MEDS: CIPROFLOXACIN 250 MG TABLET PO SCH (08:15)
--- NOTE | 2019-12-02 11:51 | DISCHARGE SUMMARY ---
"Discharge Summary Admit Date: 11/30/19 Discharge Date: 12/02/19 Discharging Provider: Bev Oconnor MD Primary Care Provider: BRITTANY Rader; Sarika Roberts MD (urology) Code Status: Attempt Resuscitation Condition at Discharge: Stable Discharge Disposition: Home Health Service - DIAGNOSES Discharge Diagnoses with Status of Each Condition: 1. Sepsis, Resolved 2. UTI due to Miller catheter, present on admission 3. Hypoxia 4. Chronic kidney disease stage III 4. Migraine headache 5. Benign prostatic hypertrophy, status post TURP - HPI History of Present Illness: This is a 74-year-old male with a past medical history significant for recurrent kidney stones, migraines, hyperlipidemia, BPH who presents today complaining of weakness that began yesterday. He underwent a lumbar fusion of L1-L2 on November 13 at [facility]. He states he was hospitalized for about 6 days and since then he has been doing well at home. He states he has a history of chronic back pain and has multiple surgeries including fusions and laminectomies. He states since he has been home, he is working with [facility] health and he has been ambulating with a walker. He had a Miller catheter in place that was removed yesterday by his urologist, Dr. Salazar. He states he was started on antibiotics yesterday for urinary tract infection. He started to feel a little weak in his lower extremities yesterday and today it progressed and so he sought medical attention. He reports no back pain, fevers, chills. He reports no bowel incontinence and states he feels constipated and his last bowel movement was about 2 to 3 days ago. He reports no dysuria, urgency, frequency, hematuria. He denies any chest pain, dyspnea, cough. He also denies sore throat, nasal congestion. He reports no numbness in his lower extremities and denies saddle anesthesia. He states his back pain has been well controlled on oxycodone at home. In the emergency department, he was found to be febrile with temperature of 38 C. He was tachycardic with a heart rate of 135. His blood pressure was 113/67. He was not tachypneic. He was saturating 97% on 2 L of oxygen via nasal cannula. Labs were significant for a white count of 23.7 with a left shift. His creatinine was stable at 1.5. His lactic acid was normal at 1.2. His troponin was also normal at 18.9. Urinalysis revealed positive nitrites, trace leukocyte esterase, 11-25 WBCs and many bacteria. He was given vancomycin and meropenem IV in the emergency department. He was also given 2 L of normal saline. He underwent a CT of the abdomen and pelvis which did not reveal any renal obstruction. Medicine was consulted for admission given the above findings. I did discuss goals of care with the patient and he would like to be a full code. 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 Chest x-ray with no acute process 2. Abdomen pelvis CT with slight groundglass opacities both lung bases. Benign hemangioma in the liver. Small stones in the kidneys. No hydronephrosis, hydroureter, or ureteral calcifications. Bladder wall thickness normal. Air anteriorly in the urinary bladder, most likely from Miller. Prostate gland within normal limits. 3. Blood cultures without growth for 2 days 4. Urine culture without growth - HOSPITAL COURSE Hospital Course: He was treated as sepsis with a UTI. He had just had the Miller catheter taken out yesterday. He explains that he has had a TURP, but is on intermittent testosterone. While urinalysis was indicative of infection, urine culture was negative. He was still treated as sepsis as the source. White cell count on admission was 23.7 and was 11.1 on the day of discharge. He responded to IV antibiotics in the form of meropenem and vancomycin. He was changed over to ciprofloxacin orally. We waited 24 hours and there was no fever, or bump in his white cell count. He was ambulating in his room for over 40 feet. Initially in isolation because the groundglass appearance in the fever and he was coronavirus negative. Eating his meals. [place] wonderful and wanted to go home. He did have one migraine headache during his stay that responded to Imitrex. Chronic kidney disease remained stable. Hypoxia present on admission resolved without any other intervention other than the IV fluids and antibiotics. At discharge he was resumed on his usual home medications. There were no changes. We just added the Cipro 500 mg twice daily. I explained to him that sometimes you are on antibiotics for several weeks for a gentleman whose had a UTI. Especially if there is even mild prostatitis. Please follow-up with his urologist to see how long he needs to stay on Cipro. I have also asked him to see his primary care provider in follow-up for continuity of care. At discharge temperature was 36.8. Pulse 90. Blood pressure 130/75. Respirations 17. 95% on room air. He is 5 foot 10 inches tall and weighs 86.5 kg. Moderately overweight, pleasant white male who looks his stated age. He has neurological deficits from previous trauma. He also has musculoskeletal deficits with regards to hands and arm movement because of that same trauma. Neck is supple, lungs are clear to auscultation and percussion. PMI is normally placed with a regular rate and rhythm. The abdomen is soft, obese, nontender. No organomegaly. Extremities have no edema. Greater than 30 minutes was spent coordinating discharge. Going over the medication list. Counseling the patient.I have asked him to resume his home health. He sees physical therapy and a nurse because of the recent back surgery. I have asked him to start those services up again. - ALLERGIES Allergies/Adverse Reactions: Allergies Allergy/AdvReac Type Severity Reaction Status Date / Time ampicillin [Ampicillin] Allergy Intermediate Cramps Verified 11/29/19 20:49 adhesive Allergy Mild Rash Verified 11/29/19 20:49 - MEDICATIONS Home Medications: Ambulatory Orders Medication Instructions Recorded Confirmed Verapamil [Calan] 80 mg PO BID 08/23/12 11/30/19 clonazePAM [Clonazepam] 0.25 mg PO QPM PRN 08/23/12 11/30/19 Atorvastatin Calcium [Lipitor] 20 mg PO DAILY 10/02/12 11/30/19 Magnesium Oxide 800 mg PO QPM 11/12/12 11/30/19 Tamsulosin [Flomax] 0.4 mg PO BID 12/17/12 11/30/19 Sumatriptan Succinate [Imitrex] 25 - 100 mg PO ONCE PRN 08/18/14 11/30/19 Testosterone [Androgel] 5 gm TD DAILY 02/04/19 11/30/19 Acetaminophen [Tylenol Extra 1,000 mg PO Q8H 11/30/19 11/30/19 Strength] Bethanechol Chloride 10 mg PO TID 11/30/19 11/30/19 Bisacodyl Supp [Dulcolax Supp] 10 mg [place] DAILY PRN 11/30/19 11/30/19 Calcium Carbonate 500 mg PO QPM 11/30/19 11/30/19 Cholecalciferol (Vitamin D3) 25 mcg PO BID 11/30/19 11/30/19 [Vitamin D3] Docusate Sodium [Stool Softener] 250 mg PO BID 11/30/19 11/30/19 Senna [Senokot] 25.8 mg PO BID 11/30/19 11/30/19 Tizanidine HCl 2 mg PO TID 11/30/19 11/30/19 Trospium Chloride [Trospium 60 mg PO DAILY 11/30/19 11/30/19 Chloride ER] oxyCODONE [Roxicodone] 5 - 10 mg PO Q4H PRN 11/30/19 11/30/19 polyethylene glycoL 3350 [Miralax] 17 gm PO DAILY 11/30/19 11/30/19 Ciprofloxacin [Cipro] 500 mg PO BID #56 tablet 12/02/19 - LABS Result Diagrams: 12/02/19 05:20 12/02/19 05:20 - SEPSIS Current Stage of Sepsis: Resolved Sepsis Criteria: Suspected or Documented, Recorded Temperature greater than 38.3C or Less than 36C, Recorded Heart Rate greater than 90 bpm, WBC count greater than 12,000 or less than 4000"
== END 2019-12-02 10:23 | disposition home health service (06) | DRG 698 ==
LOC: EDUNIT# → ED 20:40 → MS2 23:51
PROVIDERS: ADMIT Internal Medicine; ATTEND Specialist
DX: N39.0 Urinary tract infection, site not specified (principal); T83.511A Infection and inflammatory reaction due to indwelling urethral catheter, initial encounter; E78.00 Pure hypercholesterolemia, unspecified; A41.9 Sepsis, unspecified organism; N30.00 Acute cystitis without hematuria; R09.02 Hypoxemia; N41.9 Inflammatory disease of prostate, unspecified; N18.3 Chronic kidney disease, stage 3 (moderate); E78.5 Hyperlipidemia, unspecified; N40.1 Benign prostatic hyperplasia with lower urinary tract symptoms; R35.0 Frequency of micturition; R39.15 Urgency of urination; G47.30 Sleep apnea, unspecified; G43.909 Migraine, unspecified, not intractable, without status migrainosus; M81.0 Age-related osteoporosis without current pathological fracture; M19.90 Unspecified osteoarthritis, unspecified site; F41.9 Anxiety disorder, unspecified; F32.9 Major depressive disorder, single episode, unspecified; Y33.XXXS Other specified events, undetermined intent, sequela; R29.818 Other symptoms and signs involving the nervous system; Z74.09 Other reduced mobility; E66.3 Overweight; Z68.27 Body mass index [BMI] 27.0-27.9, adult; Z79.82 Long term (current) use of aspirin; Z79.891 Long term (current) use of opiate analgesic; Z79.899 Other long term (current) drug therapy; Z86.718 Personal history of other venous thrombosis and embolism; Z98.1 Arthrodesis status; Z20.828 Contact with and (suspected) exposure to other viral communicable diseases
CPT/HCPCS: 36415; 51701; 71045; 74176; 80048; 80053; 81001; 83605; 83690; 83735; 83880; 84100; 84484; 85025; 85610; 85730; 87040; 87086; 93005; 93970; 96361; 96365; 96375; 97161; 97530; 99284; 99285; A9270; J1650; J2185; J3370; J7120; U0004; 81003

== ENCOUNTER 2020-10-26 15:59 | Outpatient (CLI) | payer MEDICARE | END 2020-10-26 16:00 | disposition EMS.NT | LOC: EMS 15:59 | DX: Z03.89 Encounter for observation for other suspected diseases and conditions ruled out (principal) ==

== ENCOUNTER 2021-06-23 10:31 | Outpatient (CLI) | payer MEDICARE ==
--- NOTE | 2021-06-24 10:19 | DEXA Report ---
PROCEDURE: Dexa Spine and/or Hip INDICATIONS: OSTEOPENIA M85.80 Z01.820 TECHNIQUE: Dual energy x-ray absorptiometry (DXA) was performed on a [employer] System. Regions measur ed are the femoral neck and forearm. The lumbar spine was not utilized due to surgical hardware. COMPARISON: 03/12/2019. FINDINGS: Right Hip: Bone Mineral Density 0.894 g/cm/cm,T score -1.4, osteopenia. Similar to the prior study on which the T score was -1.5. Right Femoral Neck: Bone Mineral Density 0.900 g/cm/cm, T score -1.3, osteopenia. Slightly improved compared to the prio r study on which the T score was -1.5. Left forearm: The 33% radius of the forearm was utilized. Bone Mineral Density 1.017 g/cm/cm, T score 0.3, within normal limits. Similar to the prior study on which the T score was 0.4. (T score greater or equal to -1.0: NORMAL) (T score from -1.1 to -2.4: OSTEOPENIA) (T score less than or equal to -2.5 to: OSTEOPOROSIS) Impression: 1. Osteopenia demonstrated within the right hip and femoral neck with T score values similar to minim ally improved compared to the prior study. 2. Bone mineral density in the left forearm within normal limits. Patients with diagnosis of osteoporosis or osteopenia should have regular bone mineral density assess ment. For those eligible for Medicare, routine testing is allowed once every 2 years. Testing frequ ency can be increased for patients who have rapidly progressing disease or for those who are receivin g medical therapy to restore bone mass. Reviewed by: Chemo Ruiz MD on 06/24/2021 10:18 AM PDT Approved by: Chemo Ruiz MD on 06/24/2021 10:18 AM PDT Station ID: [id number]
== END 2021-06-23 10:32 | disposition home or self-care (01) ==
LOC: DI 10:31
PROVIDERS: ATTEND Internal Medicine
DX: M85.89 Other specified disorders of bone density and structure, multiple sites (principal); Z96.698 Presence of other orthopedic joint implants

== ENCOUNTER 2021-10-09 05:42 | Outpatient (CLI) | payer MEDICARE | END 2021-10-09 05:43 | disposition EMS.NT | LOC: EMS 05:42 | DX: Z03.89 Encounter for observation for other suspected diseases and conditions ruled out (principal) ==

== ENCOUNTER 2022-02-12 10:31 | Outpatient (CLI) | payer MEDICARE | END 2022-02-12 10:32 | disposition left against medical advice (07) | LOC: EMS 10:31 | DX: Z03.89 Encounter for observation for other suspected diseases and conditions ruled out (principal) ==

== ENCOUNTER 2022-04-30 15:42 | Outpatient (CLI) | payer MEDICARE | END 2022-04-30 15:43 | disposition EMS.NT | LOC: EMS 15:42 | DX: Z03.89 Encounter for observation for other suspected diseases and conditions ruled out (principal) ==

== ENCOUNTER 2022-08-03 06:48 | Outpatient (CLI) | payer MEDICARE | END 2022-08-03 23:59 | disposition EMS.NT | LOC: EMS 06:48 | DX: S91.312A Laceration without foreign body, left foot, initial encounter (principal); W26.8XXA Contact with other sharp object(s), not elsewhere classified, initial encounter; Y92.000 Kitchen of unspecified non-institutional (private) residence as the place of occurrence of the external cause ==

== ENCOUNTER 2022-12-12 07:50 | Outpatient (CLI) | payer MEDICARE | END 2022-12-12 23:59 | disposition EMS.NT | LOC: EMS 07:50 | DX: Z03.89 Encounter for observation for other suspected diseases and conditions ruled out (principal) ==

== ENCOUNTER 2023-07-25 06:36 | Outpatient (CLI) | payer MEDICARE | END 2023-07-25 23:59 | disposition EMS.NT | LOC: EMS 06:36 | DX: Z03.89 Encounter for observation for other suspected diseases and conditions ruled out (principal) ==

== ENCOUNTER 2023-11-01 08:54 | Outpatient (CLI) | payer MEDICARE ==
--- NOTE | 2023-11-02 | Ultrasound Report ---
PROCEDURE: Abdomen Limited INDICATIONS: LEFT LOWER QUADRANT PAIN TECHNIQUE: Ultrasound of the abdominal left lower quadrant was obtained with image documentation. COMPARISONS: None. FINDINGS: In the left lower quadrant of the abdomen was obtained and shows appropriate peristalsing bowel in th e area of pain. No ascites. Left kidney unremarkable. Spleen is surgically absent. IMPRESSION: Unremarkable left lower quadrant ultrasound status post splenectomy Reviewed by: Jared Chaudhry MD on 11/01/2023 10:59 PM AKDT Approved by: Jared Chaudhry MD on 11/01/2023 10:59 PM AKDT Station ID: [id number]
== END 2023-11-01 08:55 | disposition home or self-care (01) ==
LOC: DI 08:54
PROVIDERS: ATTEND Internal Medicine
DX: R10.32 Left lower quadrant pain (principal); Z90.81 Acquired absence of spleen